=== PATIENT | female | born 1985 | race Caucasian/White ===

== ENCOUNTER → 2017-08-11 10:41 | Outpatient (CLI) | payer OTHER, SELFPAY | PROVIDERS: Family Provider Family Medicine; PCP Family Medicine; Visit Provider Obstetrics & Gynecology | DX: Z34.91 Encounter for supervision of normal pregnancy, unspecified, first trimester (principal) ==

== ENCOUNTER → 2017-08-14 10:01 | Outpatient (CLI) | payer OTHER, MEDICAID, SELFPAY ==
[2017-08-29 16:40] LABS: HCG Quantitative /Beta subunit 4294.6 mIU/mL
== END ==
PROVIDERS: PCP Family Medicine; Visit Provider Obstetrics & Gynecology
DX: N91.2 Amenorrhea, unspecified (principal)
CPT/HCPCS: 36415; 84702

== ENCOUNTER → 2017-08-25 14:26 | Outpatient (CLI) | payer OTHER, MEDICAID, SELFPAY ==
[2017-08-25 14:56] LABS: Sodium 137 mmol/L (137-145)
[2017-08-29 16:46] LABS: HCG Quantitative /Beta subunit 9922.8 mIU/mL
== END ==
PROVIDERS: Family Provider Family Medicine; PCP Family Medicine; Visit Provider Obstetrics & Gynecology
DX: N91.2 Amenorrhea, unspecified (principal); E23.2 Diabetes insipidus; O20.9 Hemorrhage in early pregnancy, unspecified
CPT/HCPCS: 36415; 84295; 84702

== ENCOUNTER → 2017-08-28 10:55 | Outpatient (CLI) | payer OTHER, MEDICAID, SELFPAY ==
[2017-08-29 16:47] LABS: HCG Quantitative /Beta subunit 9083.8 mIU/mL
== END ==
PROVIDERS: PCP Family Medicine; Visit Provider Obstetrics & Gynecology
DX: O20.9 Hemorrhage in early pregnancy, unspecified (principal); N91.2 Amenorrhea, unspecified
CPT/HCPCS: 36415; 84702

== ENCOUNTER → 2017-09-11 11:06 | Outpatient (CLI) | payer OTHER, MEDICAID, SELFPAY ==
[2017-09-11 11:52] LABS: BUN Creatinine Ratio 21.4 (6-22); Blood Urea Nitrogen 15 mg/dL (7-17); Calcium 9.1 mg/dL (8.4-10.2); Carbon Dioxide 26 mmol/L (22-32); Chloride 101 mmol/L (98-107); Estimated Glomerular Filt Rate > 60.0 mL/min (>60); Glucose 105 mg/dL (70-100); HEMOLYSIS < 15 (0-50); Potassium 4.7 mmol/L (3.4-5.1); Sodium 138 mmol/L (137-145)
== END ==
PROVIDERS: Family Provider Family Medicine; PCP Family Medicine; Visit Provider Family Medicine
DX: E87.1 Hypo-osmolality and hyponatremia (principal)
CPT/HCPCS: 36415; 80048

== ENCOUNTER → 2017-12-07 11:24 | Outpatient (CLI) | payer OTHER, SELFPAY ==
[2017-12-07 12:47] LABS: Blood Urea Nitrogen 12 mg/dL (7-17); Carbon Dioxide 29 mmol/L (22-32); Chloride 103 mmol/L (98-107); Estimated Glomerular Filt Rate > 60.0 mL/min (>60); Glucose 90 mg/dL (70-100); HEMOLYSIS < 15 (0-50); Potassium 4.5 mmol/L (3.4-5.1); Sodium 141 mmol/L (137-145)
== END ==
PROVIDERS: Family Provider Family Medicine; PCP Family Medicine; Visit Provider Family Medicine
DX: E23.2 Diabetes insipidus (principal)
CPT/HCPCS: 36415; 80048

== ENCOUNTER → 2017-12-18 09:17 | Outpatient (CLI) | payer OTHER, SELFPAY ==
--- NOTE | 2017-12-18 09:18 | DI.US.S_ITS ---
PROCEDURE: US PELVIC COMPLETE INDICATIONS: Right pelvic pain TECHNIQUE: Real-time scanning was performed of the pelvic organs, with image documentation. Additional endovaginal scanning was necessary due to incomplete visualization of the adnexal and endometrial structures by transabdominal scanning. COMPARISON: None. FINDINGS: Transabdominal scanning: Limited scanning through the kidneys shows no hydronephrosis. No pathologic free abdominal or pelvic fluid. Endovaginal scanning: Uterus: Uterus is normal in size at 9.1 x 4.4 x 5.7 cm. The endometrium measures 7.0 mm in combined thickness. Ovaries: Ovaries normal bilaterally measuring 2.1 x 2.6 x 2.1 cm on the right and 2.1 x 2.3 x 1.6 cm on the left. No adnexal masses. The appendix is not visualized and cannot be evaluated IMPRESSION: 1. No source for right pelvic pain identified sonographically. Dictated by: Santos ADAM Interpreted: Jason Carroll MD on 12/18/2017 at 10:39 Approved by: Jason Carroll M.D. on 12/18/2017 at 21:48
== END ==
PROVIDERS: Family Provider Family Medicine; PCP Family Medicine; Visit Provider Family Medicine
DX: R10.2 Pelvic and perineal pain (principal)
CPT/HCPCS: 76830; 76856

== ENCOUNTER → 2018-03-30 14:24 | Outpatient (CLI) | payer OTHER, SELFPAY ==
[2018-03-30 15:41] LABS: BUN Creatinine Ratio 12.9 (6-22); Blood Urea Nitrogen 9 mg/dL (7-17); Calcium 9.6 mg/dL (8.4-10.2); Carbon Dioxide 24 mmol/L (22-32); Chloride 98 mmol/L (98-107); Estimated Glomerular Filt Rate > 60.0 mL/min (>60); Glucose 90 mg/dL (70-100); HEMOLYSIS < 15 (0-50); Potassium 5.2 mmol/L (3.4-5.1); Sodium 134 mmol/L (137-145)
== END ==
PROVIDERS: PCP Family Medicine; Visit Provider Family Medicine
DX: E23.2 Diabetes insipidus (principal)
CPT/HCPCS: 36415; 80048

== ENCOUNTER → 2018-04-09 10:49 | Outpatient (CLI) | payer OTHER, SELFPAY ==
[2018-04-09 12:21] LABS: BUN Creatinine Ratio 18.3 (6-22); Blood Urea Nitrogen 11 mg/dL (7-17); Calcium 9.3 mg/dL (8.4-10.2); Carbon Dioxide 25 mmol/L (22-32); Chloride 102 mmol/L (98-107); Estimated Glomerular Filt Rate > 60.0 mL/min (>60); Glucose 92 mg/dL (70-100); HEMOLYSIS < 15 (0-50); Potassium 4.2 mmol/L (3.4-5.1); Sodium 137 mmol/L (137-145)
== END ==
PROVIDERS: Family Provider Family Medicine; PCP Family Medicine; Visit Provider Family Medicine
DX: E87.1 Hypo-osmolality and hyponatremia (principal); E87.5 Hyperkalemia
CPT/HCPCS: 36415; 80048

== ENCOUNTER → 2018-05-02 17:04 | Outpatient (CLI) | payer OTHER, SELFPAY ==
[2018-05-02 17:37] LABS: Add Manual Diff / Slide Review NO; Basophils Absolute Auto 0 /uL (0-100); Basophils Percent Auto 0.5 % (0-2); Eosinophils Absolute Auto 0 /uL (0-450); Eosinophils Percent Auto 0.3 % (2-4); Hematocrit 37.7 % (36-46); Hemoglobin 12.7 g/dL (12.0-16.0); Lymphocytes Absolute Auto 1600 /uL (1100-4500); Lymphocytes Percent Auto 17.9 % (25-40); Mean Corpuscular HGB Conc 33.7 % (30-36); Mean Corpuscular Hemoglobin 28.7 PG (26-34); Mean Corpuscular Volume 85.3 fL (80-100); Monocytes Absolute Auto 600 /uL (0-900); Monocytes Percent Auto 6.7 % (3-14); Neutrophils Absolute Auto 6500 /uL (1500-7000); Neutrophils Percent Auto 74.6 % (50-75); Platelet Count 376 X10^3/uL (150-400); Red Blood Cell Count 4.42 X10^6/uL (4.0-5.2); Red Cell Distribution Width 12.3 % (11.6-14.8); White Blood Cell Count 8.7 X10^3/uL (4.5-11.0)
[2018-05-02 18:07] LABS: Alanine Aminotransferase 29 IU/L (9-52); Albumin 4.1 g/dL (3.5-5.0); Albumin Globulin Ratio 1.7 (1.0-2.8); Alkaline Phosphatase 47 U/L (38-126); Aspartate Aminotransferase 16 IU/L (14-36); BUN Creatinine Ratio 14.3 (6-22); Bilirubin Total 0.2 mg/dL (0.2-1.3); Blood Urea Nitrogen 10 mg/dL (7-17); Carbon Dioxide 27 mmol/L (22-32); Chloride 99 mmol/L (98-107); Estimated Glomerular Filt Rate > 60.0 mL/min (>60); Globulin 2.4 g/dL (1.7-4.1); Glucose 99 mg/dL (70-100); HEMOLYSIS < 15 (0-50); Lipase 87 U/L (23-300); Potassium 4.4 mmol/L (3.4-5.1); Sodium 136 mmol/L (137-145); Total Protein 6.5 g/dL (6.3-8.2)
== END ==
PROVIDERS: Family Provider Family Medicine; PCP Family Medicine; Visit Provider Family Medicine
DX: R10.11 Right upper quadrant pain (principal)
CPT/HCPCS: 36415; 80053; 83690; 85025

== ENCOUNTER 2018-05-17 19:08 | Emergency (ER) | payer OTHER, SELFPAY ==
[2018-05-17 19:10] VITALS: BP 146/96; PULSE 95; RESP 18; TEMP 36.1; O2SAT 96
--- NOTE | 2018-05-17 19:28 | DI.RAD.S_ITS ---
PROCEDURE: XR CHEST 1V INDICATIONS: chest pain TECHNIQUE: One view of the chest was acquired. COMPARISON: None. FINDINGS: Surgical changes and devices: None. Lungs and pleura: Lungs are clear. No pleural effusions or pneumothorax. Mediastinum: Mediastinal contours appear normal. Heart size is normal. Bones and chest wall: No suspicious bony lesions. Overlying soft tissues appear unremarkable. IMPRESSION: Normal for age, source of current pain symptoms is not seen. Dictated by: Anupam Daniels M.D. on 05/17/2018 at 20:00 Approved by: Anupam Daniels M.D. on 05/17/2018 at 20:00
--- NOTE | 2018-05-17 19:42 | ED.CHESTPAIN ---
HPI - Chest Pain General Chief Complaint: Chest Pain Stated Complaint: states sodium issues and heart issues Time Seen by Provider: 05/17/18 19:16 Source: patient Mode of arrival: ambulatory Limitations: no limitations History of Present Illness HPI narrative: patient is a 33-year-old female with diabetes insipidus presenting with left-sided chest pain. She says it is worse when she moves her left arm and left set up and takes a deep breath. She denies any shortness of breath no heart palpitations. She says that she does have some issues with her sodium, she does not really know what it is. He is having increased urination some frequent formed stool bowel movements. no abdominal pain no nausea vomiting no head MD complaint: chest pain Related Data Previous Rx's Medication Instructions Recorded lorazepam 0 mg PO Q6HP PRN #15 tab 05/04/16 hydroxyzine HCl 1 tab PO Q6HP PRN #20 tab 10/01/16 albuterol sulfate [Ventolin HFA] 2 puff INH Q4H #1 ea 07/07/17 doxycycline monohydrate 100 mg 100 mg PO BID #28 cap 10/05/17 capsule desmopressin 10 mcg/spray (0.1 mL) 10 mcg NASAL .COMPLEX #45 ml 04/12/18 nasal spray (non-refrigerated) Allergies Allergy/AdvReac Type Severity Reaction Status Date / Time Sulfa (Sulfonamide Allergy Mild HIVES Unverified 05/02/18 16:43 Antibiotics) [SULFA (SULFONAMIDE ANTIBIOTICS)] morphine [MORPHINE] Allergy Unknown Unverified 05/02/18 16:43 Review of Systems Review of Systems GENERAL: Denies chills, fatigue, malaise, fever, sweats, travel HEENT: Denies sinus pain, ear pain, sore throat, difficulty swallowing, neck pain RESPIRATORY: Denies dyspnea, cough, wheezing, hemoptysis, sputum. CARDIOVASCULAR: the HPI GASTROINTESTINAL: Denies nausea, vomiting, abdominal pain, diarrhea, constipation, melena. : Denies dysuria, frequency, incontinence, hematuria, urinary retention, flank pain. MUSCULOSKELETAL: Denies weakness, joint pain, or bony pain SKIN: No rash, no erythema, no pruritus NEUROLOGIC: Denies weakness, dizziness, headache, numbness, change in speech, confusion PSYCHIATRIC: No concerning psychosocial issues. 12 point review of systems is negative except for those stated above and HPI PFSH Medical History Diabetes insipidus (Chronic) 2 (Resolved) Normal Papanicolaou smear (Resolved) Pituitary adenoma (Resolved) Surgical History Pituitary adenoma (Resolved) Family History Brother Gluten intolerance Mother Bipolar 1 disorder Social History Smoking Status: Never smoker Family History Brother Gluten intolerance Mother Bipolar 1 disorder Social History Smoking Status: Never smoker Exam Initial Vital Signs Initial Vital Signs: Vital Signs Temperature 97 F L 05/17/18 19:10 Pulse Rate 95 H 05/17/18 19:10 Respiratory Rate 18 05/17/18 19:10 Blood Pressure 146/96 H 05/17/18 19:10 Pulse Oximetry 96 05/17/18 19:10 GENERAL: overweight female awake alert acute distress HEENT: Head atraumatic,EOMI, pupils reactive, face symmetric, CARDIOVASCULAR: Regular rate and rhythm without murmurs, rubs or gallops. pain is not reproducible with palpation RESPIRATORY: Breath sounds equal bilaterally, no wheezes rales or rhonchi. ABDOMEN: Soft, nontender. Normoactive bowel sounds all 4 quadrants. No guarding or rebound. EXTREMITIES: Normal range of motion, no clubbing or edema. Neurovascularly intact NEUROLOGICAL: Alert and oriented x4.Normal gait and speech. Cranial nerves II through XII grossly intact. SKIN: Warm, dry, no laceration, no petechiae, no rashes or lesions. Scores HEART Score Heart Score history: Slightly Suspicious Heart Score EKG: Normal Heart Score Age: < 45 years old Heart Score risk factors: No known risk factors Heart Score troponin: < or = to normal limit Heart Score Total: 0 PERC Score Age greater than or equal to 50 years: No Heart rate greater than or equal to 100 bpm: No Room Air O2 Sat less than 95%: No Unilateral leg swelling: No Recent trauma or surgery: No Hemoptysis: No Prior PE or DVT: No Hormone Use: No Total PERC Score: 0 Course Orders Ordered: ED Orders 05/17/18 19:28 XR chest 1V Stat 05/17/18 19:55 Complete Blood Count AUTO DIFF Stat 05/17/18 20:19 Comprehensive Metabolic Panel Stat Lipase Stat Troponin & CK Cardiac Panel Stat Vital Signs - 8 hr 05/17/18 19:10 05/17/18 21:07 Temperature 97 F L Pulse Rate 95 H 84 Respiratory Rate 18 19 Blood Pressure 146/96 H 123/67 Pulse Oximetry 96 100 MDM - Chest Pain Lab Data Attestation: I reviewed the patient's lab results. Result diagrams: 05/17/18 19:55 05/17/18 20:19 Lab Results 05/17/18 05/17/18 Range/Units 19:55 20:19 WBC 8.1 (4.5-11.0) X10^3/uL RBC 4.73 (4.0-5.2) X10^6/uL Hgb 13.7 (12.0-16.0) g/dL Hct 40.1 (36-46) % MCV 84.7 (80-100) fL MCH 29.0 (26-34) PG MCHC 34.2 (30-36) % RDW 12.8 (11.6-14.8) % Plt Count 372 (150-400) X10^3/uL Neut % (Auto) 69.3 (50-75) % Lymph % (Auto) 23.1 L (25-40) % [place] % (Auto) 6.4 (3-14) % Eos % (Auto) 0.5 L (2-4) % Baso % (Auto) 0.7 (0-2) % Neut # (Auto) 5600 (0937-1950) /uL Lymph # (Auto) 1900 (5501-5625) /uL [place] # (Auto) 500 (0-900) /uL Eos # (Auto) 0 (0-450) /uL Baso # (Auto) 100 (0-100) /uL Sodium 137 (137-145) mmol/L Potassium 3.7 (3.4-5.1) mmol/L Chloride 105 (98-107) mmol/L Carbon Dioxide 23 (22-32) mmol/L BUN 11 (7-17) mg/dL Creatinine 0.80 (0.52-1.04) mg/dL Estimated GFR > 60.0 (>60) mL/min BUN/Creatinine Ratio 13.8 (6-22) Glucose 105 H (70-100) mg/dL Calcium 9.3 (8.4-10.2) mg/dL Total Bilirubin 0.2 (0.2-1.3) mg/dL AST 18 (14-36) IU/L ALT 30 (9-52) IU/L Alkaline Phosphatase 56 (38-126) U/L Total Creatine Kinase 53 (30-135) U/L CK-MB (CK-2) TNP CK-MB (CK-2) Rel Index TNP Troponin I < 0.012 (0.01-0.034) ng/mL Total Protein 7.1 (6.3-8.2) g/dL Albumin 4.3 (3.5-5.0) g/dL Globulin 2.8 (1.7-4.1) g/dL Albumin/Globulin Ratio 1.5 (1.0-2.8) Lipase 88 (23-300) U/L Urine Dip Bedside Urine Glucose Negative Bedside Urine Bilirubin - Negative Bedside Urine Ketone - Negative Urine Specific [place] 1.020 Bedside Urine Occult Blood - Negative Bedside Urine pH 6.0 Bedside Urine Protein - Negative Bedside Urine Urobilinogen - Negative Bedside Urine Nitrite - Negative Bedside Urine Leukocytes - Negative Esterase Imaging Data Chest x-ray: Radiologist's impression: PROCEDURE: XR CHEST 1V INDICATIONS: chest pain TECHNIQUE: One view of the chest was acquired. COMPARISON: None. FINDINGS: Surgical changes and devices: None. Lungs and pleura: Lungs are clear. No pleural effusions or pneumothorax. Mediastinum: Mediastinal contours appear normal. Heart size is normal. Bones and chest wall: No suspicious bony lesions. Overlying soft tissues appear unremarkable. IMPRESSION: Normal for age, source of current pain symptoms is not seen. Dictated by: Anupam Daniels M.D. on 05/17/2018 at 20:00 ECG Data Attestation: I personally reviewed and interpreted this ECG as follows: Prior ECG tracings: available for review Interpretation: Normal sinus rhythm rate [address] changes T-wave inversion noted in lead 3 here interval 153 MDM Narrative Medical decision making narrative: Patient's pain is reproducible with movement and breathing consistent with musculoskeletal pain. Blood work EKG are reassuring. Her sodium is also within normal limits which is her major concern. At this time no indication for any further testing. Multiple etiologies for patient's symptoms considered including: Musculoskeletal, costochondritis, acute coronary syndrome, pulmonary embolism, Discharge Plan Departure Patient Disposition: Home Clinical Impression: Atypical chest pain Discharge Date/Time: 05/17/18 21:08 Interventions: ED Discharge Assessment Last Done: 05/17/18 21:07 Instructions: DI for Atypical Chest Pain Activity Restrictions/Additional Instructions: *YOU HAVE BEEN DIAGNOSED WITH atypical chest pain *WHAT TO DO: sodium today *CONTINUE TO TAKE MEDICATIONS DIRECTED *FOLLOW UP WITH YOUR PRIMARY CARE PROVIDER IN 2-3 DAYS *RETURN TO ER IF YOU SHOULD HAVE ANY NEW, WORSENING OR CONCERNING SYMPTOMS Prescriptions: No Action lorazepam 0.5 MG tablet PO Q6HP PRNQty: 15 RF: 0 hydroxyzine HCl 25 MG tablet 1 tab PO Q6HP PRNQty: 20 RF: 0 albuterol sulfate [Ventolin HFA] 90 MCG/PUFF HFA aerosol inhaler 2 puff INH Q4H Qty: 1 RF: 0 doxycycline monohydrate 100 mg capsule 100 mg PO BID Qty: 28 RF: 0 desmopressin [DDAVP] 10 mcg/spray (0.1 mL) spray with pump 10 mcg NASAL .COMPLEX Qty: 45 RF: 3 Referrals: Kelle Garcia DO [Primary Care Provider] -
[2018-05-17 20:04] LABS: Add Manual Diff / Slide Review NO; Basophils Absolute Auto 100 /uL (0-100); Basophils Percent Auto 0.7 % (0-2); Eosinophils Absolute Auto 0 /uL (0-450); Eosinophils Percent Auto 0.5 % (2-4); Hematocrit 40.1 % (36-46); Hemoglobin 13.7 g/dL (12.0-16.0); Lymphocytes Absolute Auto 1900 /uL (1100-4500); Lymphocytes Percent Auto 23.1 % (25-40); Mean Corpuscular HGB Conc 34.2 % (30-36); Mean Corpuscular Volume 84.7 fL (80-100); Monocytes Absolute Auto 500 /uL (0-900); Monocytes Percent Auto 6.4 % (3-14); Neutrophils Absolute Auto 5600 /uL (1500-7000); Neutrophils Percent Auto 69.3 % (50-75); Platelet Count 372 X10^3/uL (150-400); Red Blood Cell Count 4.73 X10^6/uL (4.0-5.2); Red Cell Distribution Width 12.8 % (11.6-14.8); White Blood Cell Count 8.1 X10^3/uL (4.5-11.0)
[2018-05-17 20:36] LABS: Alanine Aminotransferase 30 IU/L (9-52); Albumin 4.3 g/dL (3.5-5.0); Albumin Globulin Ratio 1.5 (1.0-2.8); Alkaline Phosphatase 56 U/L (38-126); Aspartate Aminotransferase 18 IU/L (14-36); BUN Creatinine Ratio 13.8 (6-22); Bilirubin Total 0.2 mg/dL (0.2-1.3); Blood Urea Nitrogen 11 mg/dL (7-17); Calcium 9.3 mg/dL (8.4-10.2); Carbon Dioxide 23 mmol/L (22-32); Chloride 105 mmol/L (98-107); Creatine Kinase 53 U/L (30-135); Estimated Glomerular Filt Rate > 60.0 mL/min (>60); Globulin 2.8 g/dL (1.7-4.1); Glucose 105 mg/dL (70-100); HEMOLYSIS < 15 (0-50); Lipase 88 U/L (23-300); Potassium 3.7 mmol/L (3.4-5.1); Sodium 137 mmol/L (137-145); Total Protein 7.1 g/dL (6.3-8.2)
[2018-05-17 20:52] LABS: Troponin I < 0.012 ng/mL (0.01-0.034)
[2018-05-17 21:07] VITALS: BP 123/67; PULSE 84; RESP 19; O2SAT 100
== END 2018-05-17 21:08 | disposition home or self-care (01) ==
PROVIDERS: Emergency Provider Emergency Medicine; Family Provider Family Medicine; PCP Family Medicine
DX: R07.89 Other chest pain (principal)
CPT/HCPCS: 36415; 36591; 71045; 80053; 81003; 82550; 83690; 84484; 85025; 93005; 99283; 99285

== ENCOUNTER → 2018-06-08 13:39 | Outpatient (CLI) | payer OTHER, SELFPAY ==
--- NOTE | 2018-06-08 13:40 | DI.US.S_ITS ---
PROCEDURE: US ABDOMEN COMPLETE INDICATIONS: RIGHT UPPER QUADRANT PAIN TECHNIQUE: Real-time scanning was performed of the abdominal and retroperitoneal organs, with image documentation. COMPARISON: None. FINDINGS: Liver: Liver demonstrates increased coarse echogenicity diffusely. There is an area of hypoechoic appearance adjacent to guru hepatis, presumably focal fatty sparing measuring 3.6 x 1.8 x 3.0 cm although technically nonspecific. Gallbladder: Contracted although otherwise unremarkable. No wall thickening or sonographic Johnston sign. Biliary ducts: Intrahepatic bile ducts are non-dilated. Extrahepatic bile duct caliber measures 2 mm. Normal is 6-7 mm or less in diameter, or 10 mm or less post-cholecystectomy. Pancreas: Visualized portions of the pancreas are sonographically normal. Spleen: Spleen is normal in size and homogeneous in echotexture. Kidneys: Kidneys are normal in size and echotexture. Right kidney measures 12.0 cm long; left kidney measures 11.3 cm long. No hydronephrosis or nephrolithiasis. No solid masses. Aorta: Visualized aorta is normal in caliber at less than 3 cm. Iliacs: Proximal common iliac arteries are normal in caliber at less than 2.5 cm. IVC: Intrahepatic inferior vena cava is patent. Miscellaneous: No free abdominal fluid. IMPRESSION: Focal hypoechoic hepatic appearance adjacent to guru hepatis, probably focal fatty sparing in a background of diffuse hepatocellular disease/fatty infiltration. However given the absence of comparison studies and somewhat masslike appearance, recommend ultrasound followup in 6 months to document continued long-term stability. Elsewhere, no acute abnormality. Dictated by: Sharif Larson M.D. on 06/08/2018 at 14:32 Approved by: Sharif Larson M.D. on 06/08/2018 at 14:36
== END ==
PROVIDERS: Family Provider Family Medicine; PCP Family Medicine; Visit Provider Family Medicine
DX: R10.11 Right upper quadrant pain (principal)
CPT/HCPCS: 76700

== ENCOUNTER → 2018-07-04 14:16 | Outpatient (CLI) | payer OTHER, SELFPAY ==
[2018-07-04 15:38] LABS: BUN Creatinine Ratio 21.7 (6-22); Blood Urea Nitrogen 13 mg/dL (7-17); Calcium 9.6 mg/dL (8.4-10.2); Carbon Dioxide 24 mmol/L (22-32); Chloride 102 mmol/L (98-107); Estimated Glomerular Filt Rate > 60.0 mL/min (>60); Glucose 97 mg/dL (70-100); HEMOLYSIS < 15 (0-50); Potassium 4.6 mmol/L (3.4-5.1); Sodium 136 mmol/L (137-145)
== END ==
PROVIDERS: Family Provider Family Medicine; PCP Family Medicine; Visit Provider Family Medicine
DX: E87.1 Hypo-osmolality and hyponatremia (principal)
CPT/HCPCS: 36415; 80048

== ENCOUNTER → 2018-09-10 13:47 | Outpatient (CLI) | payer OTHER, SELFPAY ==
[2018-09-10 16:23] LABS: BUN Creatinine Ratio 16.3 (6-22); Blood Urea Nitrogen 13 mg/dL (7-17); Calcium 9.4 mg/dL (8.4-10.2); Carbon Dioxide 28 mmol/L (22-32); Chloride 101 mmol/L (98-107); Estimated Glomerular Filt Rate > 60.0 mL/min (>60); Glucose 112 mg/dL (70-100); HEMOLYSIS < 15 (0-50); Potassium 3.9 mmol/L (3.4-5.1); Sodium 138 mmol/L (137-145)
== END ==
PROVIDERS: PCP Family Medicine; Visit Provider Family Medicine
DX: E87.1 Hypo-osmolality and hyponatremia (principal)
CPT/HCPCS: 36415; 80048

== ENCOUNTER → 2018-09-12 16:32 | Outpatient (CLI) | payer OTHER, SELFPAY ==
[2018-09-12 16:50] LABS: Bacteria Urine None Seen; RBC Urine None Seen (0-5/HPF)
[2018-09-12 17:59] LABS: Appearance Urine UA CLEAR; Bilirubin Urine UA NEGATIVE (NEGATIVE); Color Urine UA YELLOW; Glucose Urine UA NEGATIVE (Negative); Ketones Urine UA NEGATIVE (NEGATIVE); Leukocyte Esterase Urine UA NEGATIVE (NEGATIVE); Nitrite Urine UA NEGATIVE (Negative); Occult Blood Urine UA NEGATIVE (Negative); Protein Urine UA NEGATIVE (Negative); Specific Gravity Urine UA 1.025 (1.000-1.035); Urobilinogen Urine UA 0.2 E.U./dL (0.2)
[2018-09-12 18:20] LABS: Squamous Epithelial Cell Urine 1-5 /HPF (0-5/HPF); WBC Urine 0-1/HPF (0-5/HPF)
[2018-09-12 18:21] LABS: Amorphous Sediment Urine 1+; Culture Indicated Urine Cult Not Indicated
== END ==
PROVIDERS: PCP Family Medicine; Visit Provider Family Medicine
DX: R30.0 Dysuria (principal)
CPT/HCPCS: 81001

== ENCOUNTER → 2018-10-03 15:28 | Outpatient (CLI) | payer OTHER, SELFPAY ==
[2018-10-03 16:29] LABS: BUN Creatinine Ratio 23.3 (6-22); Blood Urea Nitrogen 14 mg/dL (7-17); Calcium 9.3 mg/dL (8.4-10.2); Carbon Dioxide 24 mmol/L (22-32); Chloride 105 mmol/L (98-107); Estimated Glomerular Filt Rate > 60.0 mL/min (>60); Glucose 103 mg/dL (70-100); HEMOLYSIS < 15 (0-50); Potassium 4.4 mmol/L (3.4-5.1); Sodium 138 mmol/L (137-145)
== END ==
PROVIDERS: PCP Family Medicine; Visit Provider Family Medicine
DX: E23.2 Diabetes insipidus (principal)
CPT/HCPCS: 80048

== ENCOUNTER → 2018-11-14 14:12 | Outpatient (CLI) | payer OTHER, SELFPAY ==
[2018-11-14 14:52] LABS: Blood Urea Nitrogen 10 mg/dL (7-17); Calcium 9.2 mg/dL (8.4-10.2); Carbon Dioxide 26 mmol/L (22-32); Chloride 96 mmol/L (98-107); Estimated Glomerular Filt Rate > 60.0 mL/min (>60); Glucose 107 mg/dL (70-100); HEMOLYSIS < 15 (0-50); Potassium 4.3 mmol/L (3.4-5.1); Sodium 132 mmol/L (137-145)
== END ==
PROVIDERS: PCP Family Medicine; Visit Provider Hospitalist
DX: E23.2 Diabetes insipidus (principal)
CPT/HCPCS: 36415; 80048

== ENCOUNTER → 2018-11-22 13:57 | Outpatient (CLI) | payer OTHER, SELFPAY ==
[2018-11-22 15:05] LABS: BUN Creatinine Ratio 18.8 (6-22); Blood Urea Nitrogen 15 mg/dL (7-17); Calcium 9.6 mg/dL (8.4-10.2); Carbon Dioxide 26 mmol/L (22-32); Chloride 105 mmol/L (98-107); Estimated Glomerular Filt Rate > 60.0 mL/min (>60); Glucose 70 mg/dL (70-100); HEMOLYSIS < 15 (0-50); Potassium 4.2 mmol/L (3.4-5.1); Sodium 141 mmol/L (137-145)
== END ==
PROVIDERS: PCP Family Medicine; Visit Provider Hospitalist
DX: E87.1 Hypo-osmolality and hyponatremia (principal)
CPT/HCPCS: 36415; 80048

== ENCOUNTER → 2019-01-23 15:07 | Outpatient (CLI) | payer OTHER, SELFPAY | PROVIDERS: PCP Family Medicine; Visit Provider Nurse Practitioner | DX: Z20.818 Contact with and (suspected) exposure to other bacterial communicable diseases (principal) | CPT/HCPCS: 87070 ==

== ENCOUNTER → 2019-01-30 12:38 | Outpatient (CLI) | payer OTHER, SELFPAY ==
[2019-01-30 13:47] LABS: Blood Urea Nitrogen 12 mg/dL (7-17); Carbon Dioxide 28 mmol/L (22-32); Chloride 102 mmol/L (98-107); Estimated Glomerular Filt Rate > 60.0 mL/min (>60); Glucose 94 mg/dL (70-100); HEMOLYSIS < 15 (0-50); Potassium 5.1 mmol/L (3.4-5.1); Sodium 140 mmol/L (137-145)
== END ==
PROVIDERS: PCP Family Medicine; Visit Provider Family Medicine
DX: E87.1 Hypo-osmolality and hyponatremia (principal)
CPT/HCPCS: 36415; 80048

== ENCOUNTER → 2019-03-15 13:21 | Outpatient (CLI) | payer OTHER, SELFPAY ==
[2019-03-15 14:55] LABS: BUN Creatinine Ratio 16.7 (6-22); Blood Urea Nitrogen 10 mg/dL (7-17); Carbon Dioxide 23 mmol/L (22-32); Chloride 102 mmol/L (98-107); Estimated Glomerular Filt Rate > 60.0 mL/min (>60); Glucose 87 mg/dL (70-100); Potassium 3.9 mmol/L (3.4-5.1); Sodium 136 mmol/L (137-145)
[2019-03-15 14:56] LABS: HEMOLYSIS 52 (0-50)
[2019-03-15 15:33] LABS: HCG Quantitative /Beta subunit 83438 mIU/mL
== END ==
PROVIDERS: PCP Family Medicine; Visit Provider Obstetrics & Gynecology
DX: N91.2 Amenorrhea, unspecified (principal); E87.1 Hypo-osmolality and hyponatremia
CPT/HCPCS: 36415; 80048; 84702

== ENCOUNTER → 2019-03-18 10:40 | Outpatient (CLI) | payer OTHER, SELFPAY ==
[2019-03-18 12:03] LABS: HCG Quantitative /Beta subunit 94094 mIU/mL
== END ==
PROVIDERS: PCP Family Medicine; Visit Provider Obstetrics & Gynecology
DX: N91.2 Amenorrhea, unspecified (principal)
CPT/HCPCS: 36415; 84702

== ENCOUNTER → 2019-03-27 14:06 | Outpatient (CLI) | payer OTHER, SELFPAY ==
--- NOTE | 2019-03-27 14:10 | DI.US.S_ITS ---
PROCEDURE: US ABDOMEN COMPLETE INDICATIONS: RIGHT UPPER QUADRANT PAIN TECHNIQUE: Real-time scanning was performed of the abdominal and retroperitoneal organs, with image documentation. COMPARISON: [facility], , US ABDOMEN COMPLETE, 06/08/2018, 13:47. FINDINGS: Liver: Liver is diffusely increased in echogenicity. No focal hepatic abnormalities identified. Normal hepatic size. Focal fatty sparing seen in prior examination not definitively identified on today's exam. Gallbladder: No gallstones identified. Normal gallbladder wall. No pericholecystic fluid. Negative sonographic Johnston sign. Biliary ducts: Intrahepatic bile ducts are non-dilated. Extrahepatic bile duct caliber measures 4.0 mm. Normal is 6-7 mm or less in diameter, or 10 mm or less post-cholecystectomy. Pancreas: Visualized portions of the pancreas are sonographically normal. Spleen: Spleen is normal in size and homogeneous in echotexture. Kidneys: Kidneys are normal in size and echotexture. Right kidney measures 12.7 cm long; left kidney measures 11.3 cm long. No hydronephrosis or nephrolithiasis. No solid masses. Aorta: Visualized aorta is normal in caliber at less than 3 cm. Iliacs: Proximal common iliac arteries are normal in caliber at less than 2.5 cm. IVC: Intrahepatic inferior vena cava is patent. Miscellaneous: No free abdominal fluid. IMPRESSION: 1. Increased hepatic echogenicity noted possibly related to hepatic steatosis but other sources of hepatocellular disease including hepatic cirrhosis cannot be excluded. Recommend clinical correlation. 2. Focal fatty sparing seen in prior examination not seen on today's study. 3. No source for upper quadrant pain identified. Dictated by: Santos SAMS Interpreted: Anupam Daniels MD on 03/27/2019 at 15:28 Approved by: Anupam Daniels M.D. on 03/27/2019 at 20:35
[2019-03-27 14:35] LABS: Add Manual Diff / Slide Review NO; Basophils Absolute Auto 100 /uL (0-100); Basophils Percent Auto 1.1 % (0-2); Eosinophils Absolute Auto 0 /uL (0-450); Eosinophils Percent Auto 0.3 % (2-4); Hematocrit 38.5 % (36-46); Hemoglobin 13.1 g/dL (12.0-16.0); Lymphocytes Absolute Auto 1500 /uL (1100-4500); Lymphocytes Percent Auto 18.3 % (25-40); Mean Corpuscular HGB Conc 33.9 % (30-36); Mean Corpuscular Hemoglobin 28.7 PG (26-34); Mean Corpuscular Volume 84.8 fL (80-100); Monocytes Absolute Auto 600 /uL (0-900); Neutrophils Absolute Auto 5800 /uL (1500-7000); Neutrophils Percent Auto 73.3 % (50-75); Platelet Count 402 X10^3/uL (150-400); Red Blood Cell Count 4.54 X10^6/uL (4.0-5.2); Red Cell Distribution Width 12.9 % (11.6-14.8); White Blood Cell Count 7.9 X10^3/uL (4.5-11.0)
[2019-03-27 14:58] LABS: Appearance Urine UA CLEAR; Bilirubin Urine UA NEGATIVE (NEGATIVE); Color Urine UA YELLOW; Glucose Urine UA NEGATIVE (Negative); Ketones Urine UA NEGATIVE (NEGATIVE); Leukocyte Esterase Urine UA NEGATIVE (NEGATIVE); Nitrite Urine UA NEGATIVE (Negative); Occult Blood Urine UA NEGATIVE (Negative); Protein Urine UA NEGATIVE (Negative); Urobilinogen Urine UA 0.2 E.U./dL (0.2)
[2019-03-27 15:17] LABS: pH Urine UA 5.5 (4.5-8.0)
[2019-03-27 17:14] LABS: Hepatitis B Surface Antigen NEGATIVE s/c (NEGATIVE)
[2019-03-27 17:31] LABS: HIV 1 & 2 Ab/Ag 4th Gen Combo NEGATIVE (NEGATIVE); Hep C Virus Ab w/Reflex Quant NEGATIVE s/c (NEGATIVE)
[2019-03-30 21:16] LABS: RPR Screen Nonreactive (Nonreactive)
== END ==
PROVIDERS: PCP Family Medicine; Visit Provider Obstetrics & Gynecology
DX: Z34.81 Encounter for supervision of other normal pregnancy, first trimester (principal); R10.11 Right upper quadrant pain
CPT/HCPCS: 36415; 76700; 80055; 81003; 86787; 86803; 86850; 86900; 86901; 87077; 87086; 87147; 87389

== ENCOUNTER → 2019-04-17 15:24 | Outpatient (CLI) | payer OTHER, SELFPAY | PROVIDERS: PCP Family Medicine; Visit Provider Specialist | DX: O09.529 Supervision of elderly multigravida, unspecified trimester (principal); Z34.81 Encounter for supervision of other normal pregnancy, first trimester; Z36.0 Encounter for antenatal screening for chromosomal anomalies; Z3A.12 12 weeks gestation of pregnancy | CPT/HCPCS: 36415; 81420 ==

== ENCOUNTER → 2019-06-19 12:08 | Outpatient (CLI) | payer OTHER, SELFPAY ==
--- NOTE | 2019-06-19 12:09 | DI.US.S_ITS ---
PROCEDURE: US OB >= 14 WEEKS FETUS INDICATIONS: ANATOMY OUTSIDE/PRIOR DATING DATA: Last menstrual period (LMP): Unknown. LMP-based estimated date of delivery (HELEN): Unknown. First dating scan (date and location): 03/28/19 Estimated date of delivery (HELEN) from first dating scan: 11/01/19. TECHNIQUE: Real-time scanning was performed of the fetus, with image documentation and biometric measurements. Endovaginal scanning: Not performed COMPARISON: [facility], , OB >= 14 WEEKS FETUS, 06/17/2019, 14:45. FINDINGS: General: A single living intrauterine gestation is present. Presentation: Breech. Placenta: Placental position is right fundal, without previa. Amniotic fluid index: 10.4 cm, normal range is 5-24 cm. heart rate: 157 beats per minute. Maternal cervical canal: 3.4 cm long. Normal lower limit is 2.5 cm. biometrics: Biparietal diameter: 4.5 cm, 19 weeks 4 days Head circumference: 17.4 cm, 20 weeks zero days Abdominal circumference: 15.8 cm, 20 weeks 6 days Femur length: 3.4 cm, 20 weeks 3 days Estimated gestational age from initial scan: 20 weeks 5 days Composite gestational age from present scan: 20 weeks 2 days Estimated weight and percentile: 365 g, 39th percentile Measurement variability for biometric dating: +/- 7 days from 14 weeks to 15 weeks 6 days gestation, +/- 10 days from 16 weeks to 21 weeks 6 days gestation, +/- 2 weeks from 22 weeks to 27 weeks 6 days gestation, +/- 3 weeks for 28 weeks gestation or later. weight reference: 4500 g or EFW >90/95% is considered macrosomia or large for gestational age. EFW <10% is small for gestational age. EFW 5% or less is considered intra-uterine growth restriction. Anatomic survey: Neuro: Ventricles are non-dilated at less than 10 mm. Cisterna magna is normal at 3-11 mm. Cerebellum is normal in size and morphology. Nuchal skin fold: Normal at less than 6 mm between 14-21 weeks gestational age. Face: Nose and lips, facial profile are not well visualized secondary to lie. Spine: No evidence for spina bifida. Heart: 4-chambered heart is present, with normal ventricular outflow tracts. Diaphragm: Diaphragm is intact. Stomach: Left-sided stomach is present. Kidneys: No hydronephrosis. Normal is less than 5 mm in 2nd trimester, less than 7 mm in 3rd trimester. Cord: 3-vessel cord has orthotopic insertion. Bladder: Normal in size. Extremities: All 4 extremities identified. IMPRESSION: 1. Living second trimester intrauterine . Ultrasound age is 20 weeks 2 days. Clinical age is 20 weeks 5 days. 2. Suboptimal visualization of face, nose and lips, and profile secondary to lie. 3. anatomy study otherwise unremarkable. Normal-appearing placenta. Comment: Consider followup limited ultrasound to evaluate face,, and profile. Dictated by: Sharif Larson M.D. on 06/19/2019 at 16:37 Approved by: Sammy Cantu M.D. on 06/21/2019 at 21:01
== END ==
PROVIDERS: PCP Family Medicine; Referring Provider Specialist; Visit Provider Specialist
DX: Z34.82 Encounter for supervision of other normal pregnancy, second trimester (principal); Z3A.20 20 weeks gestation of pregnancy
CPT/HCPCS: 76811

== ENCOUNTER → 2019-07-18 11:19 | Outpatient (CLI) | payer OTHER, MEDICAID, SELFPAY ==
[2019-07-18 13:14] LABS: Hematocrit 32.9 % (36-46); Hemoglobin 11.3 g/dL (12.0-16.0)
[2019-07-18 13:40] LABS: Alanine Aminotransferase 16 IU/L (<35); Albumin 3.3 g/dL (3.5-5.0); Albumin Globulin Ratio 1.2 (1.0-2.8); Alkaline Phosphatase 52 U/L (38-126); Aspartate Aminotransferase 17 IU/L (14-36); BUN Creatinine Ratio 18.8 (6-22); Bilirubin Total 0.2 mg/dL (0.2-1.3); Blood Urea Nitrogen 9 mg/dL (7-17); Calcium 8.9 mg/dL (8.4-10.2); Carbon Dioxide 23 mmol/L (22-32); Chloride 105 mmol/L (98-107); Estimated Glomerular Filt Rate > 60.0 mL/min (>60); GTT (PREG) 1 Hour PP 50gm Dose 109 mg/dL (76-139); Globulin 2.7 g/dL (1.7-4.1); Glucose 109 mg/dL (70-100); HEMOLYSIS < 15 (0-50); Potassium 4.2 mmol/L (3.4-5.1); Sodium 135 mmol/L (137-145)
== END ==
PROVIDERS: PCP Family Medicine; Referring Provider Specialist; Visit Provider Specialist
DX: Z34.82 Encounter for supervision of other normal pregnancy, second trimester (principal); Z3A.24 24 weeks gestation of pregnancy; E23.2 Diabetes insipidus
CPT/HCPCS: 36415; 80053; 82950; 85014; 85018

== ENCOUNTER → 2019-10-09 12:13 | Outpatient (CLI) | payer OTHER, MEDICAID, SELFPAY ==
[2019-10-09 13:04] LABS: BUN Creatinine Ratio 16.7 (6-22); Blood Urea Nitrogen 9 mg/dL (7-17); Calcium 8.7 mg/dL (8.4-10.2); Carbon Dioxide 23 mmol/L (22-32); Chloride 105 mmol/L (98-107); Estimated Glomerular Filt Rate > 60.0 mL/min (>60); Glucose 83 mg/dL (70-100); HEMOLYSIS < 15 (0-50); Potassium 4.5 mmol/L (3.4-5.1); Sodium 132 mmol/L (137-145)
[2019-10-10 14:04] LABS: Strep Grp B PCR POS for Grp B Strep
== END ==
PROVIDERS: PCP Family Medicine; Referring Provider Specialist; Visit Provider Specialist
DX: Z34.83 Encounter for supervision of other normal pregnancy, third trimester (principal); E23.2 Diabetes insipidus
CPT/HCPCS: 36415; 80048; 87653

== ENCOUNTER → 2019-10-16 15:38 | Outpatient (CLI) | payer OTHER, MEDICAID, SELFPAY ==
[2019-10-16 17:09] LABS: BUN Creatinine Ratio 18.2 (6-22); Blood Urea Nitrogen 10 mg/dL (7-17); Calcium 9.2 mg/dL (8.4-10.2); Carbon Dioxide 22 mmol/L (22-32); Chloride 104 mmol/L (98-107); Estimated Glomerular Filt Rate > 60.0 mL/min (>60); Glucose 84 mg/dL (70-100); HEMOLYSIS < 15 (0-50); Potassium 4.8 mmol/L (3.4-5.1); Sodium 132 mmol/L (137-145)
== END ==
PROVIDERS: PCP Family Medicine; Referring Provider Specialist; Visit Provider Specialist
DX: E23.2 Diabetes insipidus (principal); E87.1 Hypo-osmolality and hyponatremia
CPT/HCPCS: 36415; 80048

== ENCOUNTER → 2019-10-22 09:37 | Outpatient (CLI) | payer OTHER, MEDICAID, SELFPAY ==
[2019-10-23 08:06] LABS: COVID19 Sendout Not Detected (Not Detect)
== END ==
PROVIDERS: PCP Family Medicine; Visit Provider Physician Assistant
DX: Z01.812 Encounter for preprocedural laboratory examination (principal)
CPT/HCPCS: 87635

== ENCOUNTER 2019-10-23 01:54 | Inpatient (IN) | payer OTHER, MEDICAID, SELFPAY ==
[2019-10-23] VITALS (8 sets, daily range): BP systolic 108–134; BP diastolic 64–86; PULSE 68–79; RESP 10–22; TEMP 36.2; O2SAT 96–100
--- NOTE | 2019-10-23 | PATH_ITS ---
[facility] Accession Number: [id number] . 01 Material submitted: . fallopian tube - BILATERAL FALLOPIAN TUBES . 01 Clinical history: . EVALUATION OF LABOR . 02 Diagnosis: Bilateral Fallopian Tubes, Tubal Ligation: Complete cross-sections of segments of fallopian tube x2. MRV 10/25/2019 1023 Local . 02 Electronically signed: . Tabatha Siegel MD, Pathologist NPI- [id number] . 01 Gross description: . Received one formalin-filled container, labeled with the patient's name and labeled bilateral fallopian tubes. Received are two nonfimbriated, cylindrical-shaped portions of tissue. The first measures 1.0 x 0.6 x 0.5 cm; sectioned into three pieces and entirely submitted in cassette A1. The second piece measures 0.9 x 0.5 x 0.5 cm; sectioned into three pieces and entirely submitted in cassette A2. ([id number]) /[facility] 10/24/2019 0235 Local . 02 Pathologist provided ICD-10: Z30.2 . 02 CPT . 795125 Performed at: 01 [facility] [address] [facility], [place], [place] [id number] MD Henri Cho MD Phone: [phone] Performed at: 02 [facility] [address] [place], [place] [id number] MD Tayler Cheng MD Phone: [phone]
[2019-10-23] MEDS: LACTATED RINGERS 1,000 ML 999 ML IV ×2 (02:30→04:18)
[2019-10-23 02:53] LABS: Add Manual Diff / Slide Review NO; Basophils Absolute Auto 0 /uL (0-100); Basophils Percent Auto 0.4 % (0-2); Eosinophils Absolute Auto 100 /uL (0-450); Eosinophils Percent Auto 0.6 % (2-4); Hematocrit 35.5 % (36-46); Hemoglobin 12.1 g/dL (12.0-16.0); Lymphocytes Absolute Auto 1800 /uL (1100-4500); Lymphocytes Percent Auto 18.9 % (25-40); Mean Corpuscular HGB Conc 33.9 % (30-36); Mean Corpuscular Volume 85.5 fL (80-100); Monocytes Absolute Auto 600 /uL (0-900); Monocytes Percent Auto 6.2 % (3-14); Neutrophils Absolute Auto 7000 /uL (1500-7000); Neutrophils Percent Auto 73.9 % (50-75); Platelet Count 287 X10^3/uL (150-400); Red Blood Cell Count 4.16 X10^6/uL (4.0-5.2); Red Cell Distribution Width 13.6 % (11.6-14.8); White Blood Cell Count 9.5 X10^3/uL (4.5-11.0)
[2019-10-23 02:57] LABS: Carbon Dioxide 22 mmol/L (22-32); Chloride 106 mmol/L (98-107); HEMOLYSIS < 15 (0-50); Potassium 4.3 mmol/L (3.4-5.1); Sodium 134 mmol/L (137-145)
--- NOTE | 2019-10-23 03:00 | P.HPOB_ITS ---
OB HPI Date/Time Date of admission: 10/23/19 Date Patient Seen: 10/23/19 Time Patient Seen: 03:02 History of Present Condition Chief complaint: Evaluation of Labor : 4 Para: 1 Estimated Date of Delivery: 10/31/19 Estimated Gestational Age (weeks): 38 Narrative: Tee Price is a 34 year old female scheduled for repeat C- section and tubal ligation who arrived in Labor and delivery with spontaneous rupture membranes in active labor Indications Operative indications ( section): previous uterine surgery History of Present care: good care, initiated at week # (9), number of visits (10) and pounds weight gain (0) Dating criteria: LMP confirmed by 1st trimester US Ultrasounds: normal mid trimester US Obstetrical complications: none Medical complications: none Preadmission Labs Blood type: O (+) positive -: Antibody screen: negative, GBS status: positive, HBsAG: negative, HIV: negative and RPR/VDLR: negative -: Chlamydia screen: not detected and Gonorrhea screen: not detected -: Rubella: immune and Varicella: immune HCAB: negative Cell-free DNA: Normal 1 hr GTT: 109 Prior (ies) History: 10/01/2010 gestational hypertension 37 weeks primary Evaluation Evaluation Laboratory results: Laboratory Tests 10/23/19 02:35 WBC 9.5 RBC 4.16 Hgb 12.1 Hct 35.5 L MCV 85.5 MCH 29.0 MCHC 33.9 RDW 13.6 Plt Count 287 Neut % (Auto) 73.9 Lymph % (Auto) 18.9 L [place] % (Auto) 6.2 Eos % (Auto) 0.6 L Baso % (Auto) 0.4 Neut # (Auto) 7000 Lymph # (Auto) 1800 [place] # (Auto) 600 Eos # (Auto) 100 Baso # (Auto) 0 PFSH Medical History (Updated 10/16/19 @ 07:57 by Chelsey Ruby MD) Diabetes insipidus (Chronic) 2 (Resolved) Normal Papanicolaou smear (Resolved) Pituitary adenoma (Resolved) Surgical History (Updated 03/25/19 @ 10:30 by Bessie Logan RN) Pituitary adenoma (Resolved) Previous section (Acute) [place] teeth extracted (Acute) Family History (Updated 03/25/19 @ 10:29 by Bessie Logan RN) Brother Gluten intolerance Mother Bipolar 1 disorder Fibromyalgia Arthritis Diverticulitis Brother Bipolar affect, depressed Brother Bipolar affect, depressed Father Myocardial infarction Atrial fibrillation Grandmother Diabetes mellitus Seizures Grandfather Parkinsons Grandmother Stroke Grandfather No problems noted. Social History marital status: number of children: 1 household members: spouse and children pets and animals: Yes (X 1 cat and aware) education level: high school occupational status: employed current occupational exposures/hazards: No spring/sabianism: Bahai special spring needs: Yes (No Blood Products) Smoking Status: Never smoker second hand exposure: No alcohol intake: former substance use type: does not use Type(s) of exercise: walking Meds Home Medications and Allergies Home Medications Medication Instructions Recorded Confirmed Type lorazepam 0 mg PO Q6HP PRN #15 tab 05/04/16 10/16/19 Rx prenat.vits,david,ebc-ivby-mygce 1 tab PO DAILY 03/25/19 10/16/19 History omeprazole 40 mg capsule,delayed 40 mg PO DAILY #30 cap 08/30/19 10/16/19 Rx release desmopressin 10 mcg/spray (0.1 mL) 10 mcg NASAL .COMPLEX #45 ml 09/12/19 10/16/19 Rx nasal spray (non-refrigerated) Double Electric breast Pump and #1 each 09/18/19 10/16/19 Rx Supplies Allergies Allergy/AdvReac Type Severity Reaction Status Date / Time Sulfa (Sulfonamide Allergy Mild HIVES Verified 07/15/19 11:39 Antibiotics) [SULFA (SULFONAMIDE ANTIBIOTICS)] morphine [MORPHINE] Allergy Unknown Verified 07/15/19 11:39 Review of Systems Review of Systems Narrative: Patient had spontaneous rupture membranes clear fluid with onset of contractions. No headaches, scotomata, epigastric pain. ROS: Yes All systems reviewed with the patient and are negative except as otherwise documented Exam Vital Signs (past 8 hours): Blood pressure 134/69, temperature 36.2? Narrative Exam Narrative: HEENT exam within normal limits. Lungs are clear to auscultation and percussion. Heart is regular rate rhythm no S3-S4 or murmurs. Abdomen is gravid. is vertex. Extremities without edema and nontender. Objective Labs Result Diagrams: 10/23/19 02:35 10/23/19 02:35 Labs: Laboratory Results - last 24 hr 10/23/19 02:35 WBC 9.5 RBC 4.16 Hgb 12.1 Hct 35.5 L MCV 85.5 MCH 29.0 MCHC 33.9 RDW 13.6 Plt Count 287 Neut % (Auto) 73.9 Lymph % (Auto) 18.9 L [place] % (Auto) 6.2 Eos % (Auto) 0.6 L Baso % (Auto) 0.4 Neut # (Auto) 7000 Lymph # (Auto) 1800 [place] # (Auto) 600 Eos # (Auto) 100 Baso # (Auto) 0 Assessment and Plan Assessment and Plan Assessment and Plan narrative: 38 week 6 day gestation with prior section in active labor. Patient is also requesting sterilization by tubal ligation
--- NOTE | 2019-10-23 03:17 | PM.PREOP ---
Pre-operative Note COVID-19 COVID-19 status: Result pending Result date/Date tested (Pos, Neg/Pending): 10/23/19 Interval Note History & Physical reviewed/Exam performed by Physician: Yes Changes to H&P: No
[2019-10-23] MEDS: CEFAZOLIN 2 GM/100 ML FROZ.PIGGY IV (03:21)
--- NOTE | 2019-10-23 03:46 | SUR.OPER ---
Supine on Padded OR bed, head on pillow, safety belt at thigh, arms secured on padded arm boards at <90 degrees abduction. Bump under right buttock. Legs uncrossed with pillow under knees, gel pad to heels, tape over blanket to lower legs.
[2019-10-23 04:03] LABS: COVID19 -Nasal RAPID Negative (Negative)
[2019-10-23] MEDS: ACETAMINOPHEN IV 1,000 MG/100 ML VIAL 400 MG IV (04:06)
--- NOTE | 2019-10-23 04:06 | SUR.OPER ---
viable baby girl born at 0405, placenta delivered at 0408. Cord blood and placenta sent to OB with Suzan JAMESON RN.
--- NOTE | 2019-10-23 04:53 | P.OP_ITS ---
Operative Date/Time/Diagnoses Date of procedure: 10/23/19 Time of procedure: 04:53 Pre-op diagnosis: 38 week gestation with prior in active labor and request for sterilization Post-op diagnosis: same Procedure & Clinicians Procedure: Repeat low-transverse section with bilateral tubal ligation Same procedure as scheduled: Yes Indications: 38 week gestation in active labor with prior and wish for sterilization Surgeon: Chelsey Ruby Transmission Systems Operator: Edith Montes De Oca Click Yes if Unassisted: No Anesthesia Type: Spinal Operative Notes Findings: Normal tubes ovaries and uterus with viable female weighing 6 lb 1 oz with Apgars of 9 and 9 Closure Type: primary Specimen(s): other (Bilateral tube segments) Applied: catheter (Adair) Estimated Blood Loss (mL): 200 Blood products transfused: none Procedure in detail: The patient was brought to the operating room where she underwent a spinal for anesthesia. She was placed in a supine position with a left lateral tilt. A Adair catheter was placed. Pulsatile stockings were placed and functional throughout the case. 2 g of Ancef were given IV prior to the incision. Warming was in place. The patient was prepped and draped in usual sterile fashion. A low transverse incision was made with a scalpel through the prior incision and the incision was carried down to the fascial layer which was incised transversely with scissors. The midline attachments are superiorly and inferiorly. The rectus muscles were in the midline and the peritoneal incision was made with no damage to internal structures. The peritoneum was incised and superiorly and inferiorly. Bladder blade was placed and a bladder flap was developed and the bladder held away from the lower uterine segment. An incision was made in the uterus with the scalpel and the incision was extended with stretching. The head was elevated out of the abdomen and with fundal pressure the baby was delivered. The infant was bulb suctioned for clear fluid and handed off to the warmer. Cord blood was collected. The placenta delivered spontaneously with traction. The uterus was cleaned with clean laps. The uterine incision was closed in 2 layers of 0 chromic suture the first a running locking layer the second an imbricating layer. The bladder peritoneum was repaired with 2-0 Vicryl suture. The gutters were cleaned of any remaining fluids and ovaries and tubes were observed to be normal. A segment of the right fallopian tube was grasped the Andrew and tied off x2 0 plain suture with the intervening section removed. The segment ends were bovied. Same procedure performed on the left side. The 2 sections of fallopian tube were sent to pathology. Adequate hemostasis was noted. The perineum was closed with 2-0 Vicryl suture. The fascia layer was closed with 0 Vicryl suture with 2 stitches. The incision was irrigated and adequate hemostasis noted. The incision was closed with interrupted 3-0 Vicryl sutures and then a subcuticular stitch of 4-0 Vicryl suture. Steri-Strips were placed. The uterus was massaged to remove any clots. The patient went to recovery room in good condition. Counts of instruments and sponges were correct. Complications: none Post-operative Condition: stable Disposition: other ( Center) Plan for aftercare: Routine post section care
[2019-10-23] MEDS: HYDROMORPHONE 2 MG INJ IV (05:01)
--- NOTE | 2019-10-23 05:42 | SUR.PHASEI ---
[address] Vela and Flori checked on pt, Dr. Ruby spoke with her. VSS, improved pain to 4/10; pt declined more IV med, will have PO on arrival to Center. Resp unlabored, skin warm and dry, pt lying on her left side for improved comfort w/pillows supporting back and between knees. Will turn for fundus and vag bleeding check upon transfer 05 to center room 1. Bed down and locked, SCD's on. Center RN checked fundus and bleeding. Dad and baby in the room. Pt c/o right sided low abdominal pain upon turning to her back. She'd previously stated that this is where she had pain during . RN aware (phone call from PACU) that she is ready for PO med. No questions/concerns. RN informed if ketorolac and IV tylenol in OR.
[2019-10-23] MEDS: LACTATED RINGERS 1,000 ML 100 ML IV (05:51)
[2019-10-23] MEDS: OXYCODONE IR 5 MG TABLET PO ×4 (05:51→22:16)
[2019-10-23] MEDS: ONDANSETRON 4 MG/2 ML INJ IV (08:57)
[2019-10-23] MEDS: ACETAMINOPHEN 325 MG TABLET 650 MG PO ×3 (11:10→22:16)
[2019-10-23] MEDS: KETOROLAC 30 MG/ML VIAL IV ×3 (11:11→23:49)
[2019-10-23] MEDS: DESMOPRESSIN 10 EACH NASAL (17:00)
[2019-10-24] MEDS: OXYCODONE IR 5 MG TABLET PO (04:55)
[2019-10-24] MEDS: ACETAMINOPHEN 325 MG TABLET 650 MG PO (04:56)
[2019-10-24 07:20] LABS: Add Manual Diff / Slide Review NO; Basophils Absolute Auto 0 /uL (0-100); Basophils Percent Auto 0.3 % (0-2); Eosinophils Absolute Auto 100 /uL (0-450); Eosinophils Percent Auto 1.3 % (2-4); Hematocrit 29.5 % (36-46); Lymphocytes Absolute Auto 1900 /uL (1100-4500); Mean Corpuscular HGB Conc 33.9 % (30-36); Mean Corpuscular Hemoglobin 29.5 PG (26-34); Mean Corpuscular Volume 86.8 fL (80-100); Monocytes Absolute Auto 800 /uL (0-900); Monocytes Percent Auto 9.9 % (3-14); Neutrophils Absolute Auto 5200 /uL (1500-7000); Neutrophils Percent Auto 64.5 % (50-75); Platelet Count 237 X10^3/uL (150-400); Red Cell Distribution Width 13.9 % (11.6-14.8)
[2019-10-24 07:30] LABS: Carbon Dioxide 24 mmol/L (22-32); Chloride 102 mmol/L (98-107); HEMOLYSIS < 15 (0-50); Potassium 3.9 mmol/L (3.4-5.1); Sodium 129 mmol/L (137-145)
[2019-10-24] MEDS: OXYCODONE/ACETAMINOPHEN 5/325 TABLET 2 TAB PO ×4 (09:26→23:02)
[2019-10-24] MEDS: DOCUSATE 250 MG CAPSULE PO (09:27)
[2019-10-24] MEDS: PRENATAL VIT,CALC/IRON/FOLIC 1 TABLET 1 TAB PO (09:27)
[2019-10-24] MEDS: IBUPROFEN 600 MG TABLET PO ×2 (09:27→18:06)
--- NOTE | 2019-10-24 17:58 | PM.OBPN.1 ---
Subjective - OB Subjective Patient comments: incisional pain baby status: doing well feeding status: exclusively breast feeding Date Patient Seen: 10/24/19 Time Patient Seen: 17:58 Interval history: Postoperative day 1. Repeat section. Patient is ready to have her Adair catheter removed and ambulate. She is doing okay with pain. Exam Vital Signs (past 8 hours): Blood pressure 112/76, pulse of 80, temperature 98.1? Oxygen Delivery Method Room Air Narrative Exam Narrative: Abdomen is soft, nontender. Uterus is firm, at U, nontender. Dressing is clean, dry, intact. Mild lochia. Extremities with trace edema and nontender. 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
[2019-10-24 18:45] LABS: Carbon Dioxide 24 mmol/L (22-32); Chloride 101 mmol/L (98-107); HEMOLYSIS < 15 (0-50); Potassium 4.2 mmol/L (3.4-5.1); Sodium 130 mmol/L (137-145)
[2019-10-25] MEDS: IBUPROFEN 600 MG TABLET PO ×3 (00:06→13:47)
[2019-10-25] MEDS: DOCUSATE 250 MG CAPSULE PO (08:04)
[2019-10-25] MEDS: OXYCODONE/ACETAMINOPHEN 5/325 TABLET 2 TAB PO ×2 (08:04→13:46)
[2019-10-25] MEDS: PRENATAL VIT,CALC/IRON/FOLIC 1 TABLET 1 TAB PO (08:08)
[2019-10-25 11:56] LABS: Carbon Dioxide 26 mmol/L (22-32); Chloride 99 mmol/L (98-107); HEMOLYSIS < 15 (0-50); Sodium 129 mmol/L (137-145)
--- NOTE | 2019-10-25 12:01 | PM.OBDS.1 ---
Discharge Providers Provider Date of admission: 10/23/19 01:54 Discharge Date: 10/25/19 Primary care physician: Kelle Garcia DO Consults: 10/23/19 06:40 Consult to Community Liaison Officer Routine Comment: Discharge provider: Chelsey Ruby MD Summary Hospital Course Date Patient Seen: 10/25/19 Time Patient Seen: 12:01 Procedures: Repeat low-transverse section with bilateral tubal ligation Hospital Course: Patient arrived in Labor and delivery with spontaneous rupture membranes in active labor so we proceeded with planned repeat low-transverse section and tubal ligation. Patient did well post operatively other than some difficulty with her low sodium. She is delaying her vasopressin use. She is urinating. She had a bowel movement. She is working with the exchange underwriting consultant for her breast-feeding. She is ambulatory. No headaches, scotomata, epigastric pain. Peripartum Data Delivery Method: Section (Repeat) Procedures: Repeat low-transverse section and bilateral tubal ligation complications: other (Low sodium) 1: Gender: Female Disposition of : home Discharge Diagnosis (1) Diabetes insipidus: Status: Chronic Problem Details: from surgical resection of pituitary adenoma (2) Delivery by section: Status: Acute (3) Sterilization: Status: Acute (4) Hyponatremia: Status: Resolved Status at Discharge Cognitive/behavioral status at discharge: oriented Functional status at discharge: independent ambulation Overall status at discharge: patient is progressing back to baseline (Patient is aware of her low sodium and is delaying her DDAVP sprays) Time Spent with Patient Time attestation: Total time spent providing and/or coordinating discharge services: Objective Labs Result Diagrams: 10/24/19 06:32 10/25/19 11:30 Labs: Laboratory Results - last 24 hr 10/24/19 10/25/19 18:30 11:30 Sodium 130 L 129 L Potassium 4.2 4.0 Chloride 101 99 Carbon Dioxide 24 26 Exam Vital Signs (past 8 hours): Blood pressure 104/63, pulse 76, temperature 99? Oxygen Delivery Method Room Air Narrative Exam Narrative: Abdomen is soft, nontender. Uterus is firm, at U, nontender. Dressing is clean, dry, intact. Mild lochia. Extremities with trace edema and nontender. Patient's blood type is O positive and she is rubella immune. She received Tdap in the 3rd trimester. Discharge Plan Discharge Plan Patient Disposition: Home Discharge orders & Medications Prescriptions: New oxycodone-acetaminophen 5-325 mg Tablet 2 tab PO Q4HR PRN (Reason: Pain, Severe (7-10)) Qty: 30 RF: 0 ibuprofen 600 mg Tablet 600 mg PO Q6HR PRN (Reason: Fever/Mild Pain (1-3)) Qty: 30 RF: 0 docusate sodium 250 mg Capsule 250 mg PO DAILY Qty: 30 RF: 0 Continued desmopressin [DDAVP] 10 mcg/spray (0.1 mL) spray with pump 10 mcg NASAL .COMPLEX Qty: 45 RF: 3 (DME) [employer] breast Pump and Supplies See Rx Instructions .ROUTE .MEDSUPPLY Qty: 1 RF: 0 prenat.vits,david,iua-gwnk-vujdc Tablet 1 tab PO DAILY Qty: 90 RF: 2 Follow up/Referrals: Chelsey Ruby MD [Physician] - 1 Week (Aquacel removaland incision check on 11/01/2019 @[address] Ruby) Kelle Garcia DO [Primary Care Provider] - Diet/Activity/Treatments Diet: Regular Activity: No lifting over 20 lb or anything in vagina for 6 weeks Skin/Wound/Dressing Care Report to your healthcare provider any signs of infection, such as:: chills, fever and increased pain Dressing: Leave dressing on until 1 week postop visit Visit Report/Discharge Packet Stand Alone Forms: Discharge: Care Discharge Data Primary Care Provider: Kelle Garcia
[2019-10-25 12:21] VITALS: BP 104/63; PULSE 76; RESP 16; TEMP 37.2
== END 2019-10-25 15:08 | disposition home or self-care (01) | DRG 540 ==
PROVIDERS: Admitting Provider Obstetrics & Gynecology; PCP Family Medicine; Referring Provider Obstetrics & Gynecology; Visit Provider Specialist
PROC: 10D00Z1 Extraction of Products of Conception, Low, Open Approach (ICD-10-PCS; CPT 59514; principal; 2019-10-23 03:00)
DX: O34.219 Maternal care for unspecified type scar from previous cesarean delivery (principal); E23.2 Diabetes insipidus; O75.82 Onset (spontaneous) of labor after 37 completed weeks of gestation but before 39 completed weeks gestation, with delivery by (planned) cesarean section; O99.824 Streptococcus B carrier state complicating childbirth; Z30.2 Encounter for sterilization; Z3A.38 38 weeks gestation of pregnancy; Z37.0 Single live birth; Z11.59 Encounter for screening for other viral diseases; Z01.812 Encounter for preprocedural laboratory examination
CPT/HCPCS: 36415; 58611; 59050; 59514; 80051; 85025; 86850; 86900; 86901; 87635; G0379; J0131; J0690; J1170; J1885; J2250; J2274; J2405; J2590; J3010

== ENCOUNTER → 2019-10-30 15:02 | Outpatient (CLI) | payer OTHER, MEDICAID, SELFPAY ==
[2019-10-30 16:45] LABS: Carbon Dioxide 24 mmol/L (22-32); Chloride 98 mmol/L (98-107); HEMOLYSIS < 15 (0-50); Potassium 4.8 mmol/L (3.4-5.1); Sodium 131 mmol/L (137-145)
== END ==
PROVIDERS: PCP Family Medicine; Referring Provider Specialist; Visit Provider Specialist
DX: E23.2 Diabetes insipidus (principal)
CPT/HCPCS: 36415; 80051

== ENCOUNTER → 2019-11-13 13:41 | Outpatient (CLI) | payer OTHER, MEDICAID, SELFPAY ==
[2019-11-13 15:17] LABS: Carbon Dioxide 26 mmol/L (22-32); Chloride 103 mmol/L (98-107); HEMOLYSIS < 15 (0-50); Potassium 4.6 mmol/L (3.4-5.1); Sodium 137 mmol/L (137-145)
[2019-11-13 16:48] LABS: Prolactin 88.5 ng/mL (3.0-18.6)
== END ==
PROVIDERS: PCP Family Medicine; Referring Provider Specialist; Visit Provider Specialist
DX: E23.2 Diabetes insipidus (principal)
CPT/HCPCS: 36415; 80051; 84146

== ENCOUNTER → 2020-05-27 15:33 | Outpatient (CLI) | payer OTHER, MEDICAID, SELFPAY ==
[2020-05-27 16:20] LABS: BUN Creatinine Ratio 21.1 (6-22); Blood Urea Nitrogen 15 mg/dL (7-17); Calcium 9.1 mg/dL (8.4-10.2); Carbon Dioxide 27 mmol/L (22-32); Chloride 104 mmol/L (98-107); Estimated Glomerular Filt Rate > 60.0 mL/min (>60); Glucose 103 mg/dL (70-100); HEMOLYSIS < 15 (0-50); Potassium 4.4 mmol/L (3.4-5.1); Sodium 138 mmol/L (137-145)
== END ==
PROVIDERS: PCP Family Medicine; Referring Provider Family Medicine; Visit Provider Family Medicine
DX: E23.2 Diabetes insipidus (principal)
CPT/HCPCS: 36415; 80048

== ENCOUNTER → 2020-11-04 10:59 | Outpatient (CLI) | payer OTHER, MEDICAID, SELFPAY ==
[2020-11-04 12:48] LABS: Blood Urea Nitrogen 11 mg/dL (7-17); Calcium 9.2 mg/dL (8.4-10.2); Carbon Dioxide 23 mmol/L (22-32); Chloride 106 mmol/L (98-107); Estimated Glomerular Filt Rate > 60.0 mL/min (>60); Glucose 97 mg/dL (70-100); HEMOLYSIS < 15 (0-50); Potassium 4.3 mmol/L (3.4-5.1); Sodium 135 mmol/L (137-145)
[2020-11-04 13:01] LABS: Prolactin 10.1 ng/mL (3.0-18.6)
[2020-11-04 13:15] LABS: TSH w/ Reflex to FT4 1.68 uIU/mL (0.47-4.68)
== END ==
PROVIDERS: PCP Family Medicine; Referring Provider Family Medicine; Visit Provider Family Medicine
DX: D35.2 Benign neoplasm of pituitary gland (principal); E23.2 Diabetes insipidus; E87.1 Hypo-osmolality and hyponatremia
CPT/HCPCS: 36415; 80048; 84146; 84443

== ENCOUNTER → 2021-02-26 12:53 | Outpatient (CLI) | payer OTHER, MEDICAID, SELFPAY ==
[2021-02-26 14:37] LABS: COVID19 -Nasal RAPID Negative (Negative)
== END ==
PROVIDERS: PCP Family Medicine; Visit Provider Physician Assistant
DX: Z20.822 Contact with and (suspected) exposure to COVID-19 (principal)
CPT/HCPCS: 87635

== ENCOUNTER → 2021-06-04 15:03 | Outpatient (CLI) | payer OTHER, MEDICAID, SELFPAY ==
[2021-06-04 16:44] LABS: BUN Creatinine Ratio 20.6 (6-22); Blood Urea Nitrogen 14 mg/dL (7-17); Calcium 8.7 mg/dL (8.4-10.2); Carbon Dioxide 26 mmol/L (22-32); Chloride 102 mmol/L (98-107); Estimated Glomerular Filt Rate > 60.0 mL/min (>60); Glucose 94 mg/dL (70-100); HEMOLYSIS < 15 (0-50); Potassium 4.4 mmol/L (3.4-5.1); Sodium 136 mmol/L (137-145)
== END ==
PROVIDERS: PCP Family Medicine; Referring Provider Family Medicine; Visit Provider Family Medicine
DX: D35.2 Benign neoplasm of pituitary gland (principal); E23.2 Diabetes insipidus
CPT/HCPCS: 80048

== ENCOUNTER → 2021-07-20 11:31 | Outpatient (CLI) | payer OTHER, MEDICAID, SELFPAY ==
--- NOTE | 2021-07-20 11:32 | DI.MRI.S_ITS ---
PROCEDURE: MR HEAD/BRAIN WO CON INDICATIONS: 36-year-old female with history of pituitary adenoma resected December 2002. Surveillance study. TECHNIQUE: Noncontrast axial T1 spin echo, axial T2 fast spin echo, sagittal and axial FLAIR, coronal T2 fast spin echo, axial gradient echo, axial diffusion and ADC through the brain. COMPARISON: [facility], MR, BRAIN (PITUITARY) W&WO CONTRARMAAN, 05/18/2016, 10:57. FINDINGS: Image quality: Excellent. CSF Spaces: Basal cisterns are patent. No extra-axial fluid collections. Ventricles are normal in size and shape. Brain: No intracranial masses or hemorrhage. Rodriguez/white matter interface is normal. Brainstem appears normal. Diffusion-weighted images demonstrate no acute ischemic insult. No chronic ischemic insults. Normal intravascular flow voids are present. Visualized portions of the sella shows a grossly unremarkable pituitary with convex superior capsule and midline infundibulum Skull and face: Calvarium has normal marrow signal. Orbits appear normal. Sinuses: Sinuses and mastoids are clear. IMPRESSION: 1. Grossly unremarkable pituitary without evidence of recurrent tumor on this MRI brain study. Consider follow-up MRI pituitary if there is clinical need for further evaluation. 2. Unremarkable MRI of the brain Approved by: Orion Anderson M.D. on 07/20/2021 at 15:05
== END ==
PROVIDERS: PCP Family Medicine; Referring Provider Family Medicine; Visit Provider Family Medicine
DX: D35.2 Benign neoplasm of pituitary gland (principal); E23.2 Diabetes insipidus
CPT/HCPCS: 70551

== ENCOUNTER → 2021-09-22 11:35 | Outpatient (CLI) | payer OTHER, MEDICAID, SELFPAY ==
[2021-09-22 12:31] LABS: BUN Creatinine Ratio 22.2 (6-22); Blood Urea Nitrogen 14 mg/dL (7-17); Calcium 8.7 mg/dL (8.4-10.2); Carbon Dioxide 26 mmol/L (22-32); Chloride 103 mmol/L (98-107); Estimated Glomerular Filt Rate > 60 mL/min (>60); Glucose 104 mg/dL (70-100); HEMOLYSIS < 15 (0-50); Potassium 4.3 mmol/L (3.4-5.1); Sodium 137 mmol/L (137-145)
== END ==
PROVIDERS: PCP Pediatrics; Referring Provider Registered Nurse Diabetes Educator; Visit Provider Registered Nurse Diabetes Educator
DX: E23.2 Diabetes insipidus (principal); N93.9 Abnormal uterine and vaginal bleeding, unspecified
CPT/HCPCS: 36415; 80048

== ENCOUNTER → 2022-02-02 10:23 | Outpatient (CLI) | payer OTHER, MEDICAID, SELFPAY ==
[2022-02-02 11:09] LABS: Hematocrit 37.8 % (36-46); Hemoglobin 13.1 g/dL (12.0-16.0); Mean Corpuscular HGB Conc 34.8 % (30-36); Mean Corpuscular Hemoglobin 29.3 PG (26-34); Mean Corpuscular Volume 84.3 fL (80-100); Platelet Count 317 X10^3/uL (150-400); Red Blood Cell Count 4.48 X10^6/uL (4.0-5.2); Red Cell Distribution Width 12.9 % (11.6-14.8); White Blood Cell Count 6.9 X10^3/uL (4.5-11.0)
[2022-02-02 12:01] LABS: Alanine Aminotransferase 46 IU/L (<35); Albumin Globulin Ratio 1.6 (1.0-2.8); Alkaline Phosphatase 63 U/L (38-126); Aspartate Aminotransferase 22 IU/L (14-36); BUN Creatinine Ratio 17.1 (6-22); Bilirubin Total 0.3 mg/dL (0.2-1.3); Blood Urea Nitrogen 12 mg/dL (7-17); Calcium 8.8 mg/dL (8.4-10.2); Carbon Dioxide 27 mmol/L (22-32); Chloride 101 mmol/L (98-107); Cholesterol 188 mg/dL (140-199); Estimated Glomerular Filt Rate > 60 mL/min (>60); Globulin 2.5 g/dL (1.7-4.1); Glucose 97 mg/dL (70-100); HDL Cholesterol 41 mg/dL (40-60); HEMOLYSIS < 15 (0-50); LDL Cholesterol Calculated 117 mg/dL (<100); Potassium 4.5 mmol/L (3.4-5.1); Sodium 134 mmol/L (137-145); Total Protein 6.5 g/dL (6.3-8.2); Triglycerides 151 mg/dL (35-150)
[2022-02-02 12:28] LABS: TSH w/ Reflex to FT4 1.58 uIU/mL (0.47-4.68)
== END ==
PROVIDERS: PCP Family Medicine; Referring Provider Registered Nurse Diabetes Educator; Visit Provider Registered Nurse Diabetes Educator
DX: Z00.00 Encounter for general adult medical examination without abnormal findings (principal); E66.9 Obesity, unspecified; E23.2 Diabetes insipidus; E87.1 Hypo-osmolality and hyponatremia
CPT/HCPCS: 36415; 80053; 80061; 84443; 85027

== ENCOUNTER → 2022-06-06 10:35 | Outpatient (CLI) | payer OTHER, MEDICAID, SELFPAY ==
[2022-06-06 12:20] LABS: Alanine Aminotransferase 37 IU/L (<35); Albumin 4.2 g/dL (3.5-5.0); Albumin Globulin Ratio 1.6 (1.0-2.8); Alkaline Phosphatase 59 U/L (38-126); Aspartate Aminotransferase 26 IU/L (14-36); BUN Creatinine Ratio 21.4 (6-22); Bilirubin Total 0.5 mg/dL (0.2-1.3); Blood Urea Nitrogen 12 mg/dL (7-17); Calcium 8.7 mg/dL (8.4-10.2); Carbon Dioxide 23 mmol/L (22-32); Chloride 99 mmol/L (98-107); Estimated Glomerular Filt Rate > 60 mL/min (>60); Globulin 2.6 g/dL (1.7-4.1); Glucose 103 mg/dL (70-100); HEMOLYSIS < 15 (0-50); Potassium 4.5 mmol/L (3.4-5.1); Sodium 131 mmol/L (137-145); Total Protein 6.8 g/dL (6.3-8.2)
== END ==
PROVIDERS: PCP Family Medicine; Referring Provider Internal Medicine; Visit Provider Internal Medicine
DX: E23.2 Diabetes insipidus (principal)
CPT/HCPCS: 36415; 80053

== ENCOUNTER → 2022-06-17 12:05 | Outpatient (CLI) | payer OTHER, MEDICAID, SELFPAY ==
--- NOTE | 2022-06-17 12:06 | DI.US.S_ITS ---
PROCEDURE: US ABDOMEN LIMITED INDICATIONS: RUQ PAIN TECHNIQUE: Real-time focused scanning was performed of the abdomen, with image documentation. COMPARISON: [facility], US, US ABDOMEN COMPLETE, 03/27/2019, 14:55. [facility], US, US ABDOMEN COMPLETE, 06/08/2018, 13:47. FINDINGS: The liver is normal in size and unchanged in increased echotexture consistent with fatty infiltration with reference to the prior ultrasound studies from 2019 an ovoid hypoechoic structure is present adjacent to the gallbladder fossa measuring 3.1 x 2.3 x 3.6 cm. Given the chronicity of this finding statistically this is most likely focal sparing from otherwise diffuse fatty infiltration but a atypical hemangioma could also produce this appearance. No gallbladder abnormality is found, the bile ducts appear normal and the pancreas visualized appears normal. IMPRESSION: No change from comparison study in June of 2018. Focal fatty infiltration is the presumed cause, versus atypical hemangioma, for the hypoechoic structure in a background of diffuse increased echotexture (diffuse fatty infiltration) throughout the liver as has been previously the case. This structure measures 3.1 x 2.3 x 3.6 cm. Given its chronicity it presumably is benign. If clinically desired contrast-enhanced MR scanning could be utilized to further characterize the structure. Dictated by: Anupam Daniels M.D. on 06/17/2022 at 16:52 Approved by: Anupam Daniels M.D. on 06/17/2022 at 16:58
== END ==
PROVIDERS: PCP Family Medicine; Referring Provider Family Medicine; Visit Provider Family Medicine
DX: K58.9 Irritable bowel syndrome, unspecified (principal); R10.11 Right upper quadrant pain; G89.29 Other chronic pain
CPT/HCPCS: 76705

== ENCOUNTER → 2022-07-27 10:28 | Outpatient (CLI) | payer OTHER, MEDICAID, SELFPAY ==
[2022-07-27 12:32] LABS: Blood Urea Nitrogen 12 mg/dL (7-17); Calcium 9.1 mg/dL (8.4-10.2); Carbon Dioxide 27 mmol/L (22-32); Chloride 102 mmol/L (98-107); Estimated Glomerular Filt Rate > 60 mL/min (>60); Glucose 95 mg/dL (70-100); HEMOLYSIS < 15 (0-50); Potassium 4.6 mmol/L (3.4-5.1); Sodium 135 mmol/L (137-145)
== END ==
PROVIDERS: PCP Family Medicine; Referring Provider Family Medicine; Visit Provider Family Medicine
DX: E23.2 Diabetes insipidus (principal); E87.1 Hypo-osmolality and hyponatremia
CPT/HCPCS: 36415; 80048

== ENCOUNTER → 2022-12-27 09:58 | Outpatient (CLI) | payer OTHER, SELFPAY ==
[2022-12-27 11:28] LABS: Hematocrit 41.7 % (36-46); Hemoglobin 14.1 g/dL (12.0-16.0); Mean Corpuscular HGB Conc 33.8 % (30-36); Mean Corpuscular Hemoglobin 29.4 PG (26-34); Mean Corpuscular Volume 86.9 fL (80-100); Platelet Count 369 X10^3/uL (150-400); Red Cell Distribution Width 13.1 % (11.6-14.8); White Blood Cell Count 6.8 X10^3/uL (4.5-11.0)
[2022-12-27 12:05] LABS: Alanine Aminotransferase 54 IU/L (<35); Albumin 4.4 g/dL (3.5-5.0); Albumin Globulin Ratio 1.6 (1.0-2.8); Alkaline Phosphatase 56 U/L (38-126); Aspartate Aminotransferase 32 IU/L (14-36); Bilirubin Total 0.6 mg/dL (0.2-1.3); Blood Urea Nitrogen 12 mg/dL (7-17); Calcium 9.5 mg/dL (8.4-10.2); Carbon Dioxide 26 mmol/L (22-32); Chloride 102 mmol/L (98-107); Cholesterol 228 mg/dL (140-199); Estimated Glomerular Filt Rate > 60 mL/min (>60); Globulin 2.7 g/dL (1.7-4.1); Glucose 102 mg/dL (70-100); HDL Cholesterol 41 mg/dL (40-60); HEMOLYSIS 24 (0-50); LDL Cholesterol Calculated 151 mg/dL (<100); Potassium 4.5 mmol/L (3.4-5.1); Sodium 135 mmol/L (137-145); Total Protein 7.1 g/dL (6.3-8.2); Triglycerides 182 mg/dL (35-150)
== END ==
PROVIDERS: PCP Family Medicine; Referring Provider Family Medicine; Visit Provider Family Medicine
DX: R10.11 Right upper quadrant pain (principal); G89.29 Other chronic pain; E87.1 Hypo-osmolality and hyponatremia; E66.9 Obesity, unspecified
CPT/HCPCS: 36415; 80053; 80061; 85027

== ENCOUNTER → 2023-03-30 10:30 | Outpatient (CLI) | payer OTHER, SELFPAY ==
[2023-03-30 12:44] LABS: Alanine Aminotransferase 53 IU/L (<35); Albumin 4.3 g/dL (3.5-5.0); Albumin Globulin Ratio 1.5 (1.0-2.8); Alkaline Phosphatase 59 U/L (38-126); Aspartate Aminotransferase 36 IU/L (14-36); BUN Creatinine Ratio 19.4 (6-22); Bilirubin Total 0.7 mg/dL (0.2-1.3); Blood Urea Nitrogen 12 mg/dL (7-17); Calcium 9.6 mg/dL (8.4-10.2); Carbon Dioxide 26 mmol/L (22-32); Chloride 102 mmol/L (98-107); Cholesterol 234 mg/dL (140-199); Estimated Glomerular Filt Rate > 60 mL/min (>60); Globulin 2.8 g/dL (1.7-4.1); Glucose 96 mg/dL (70-100); HDL Cholesterol 41 mg/dL (40-60); HEMOLYSIS < 15 (0-50); LDL Cholesterol Calculated 151 mg/dL (<100); Potassium 4.5 mmol/L (3.4-5.1); Sodium 135 mmol/L (137-145); Total Protein 7.1 g/dL (6.3-8.2); Triglycerides 208 mg/dL (35-150)
== END ==
PROVIDERS: PCP Family Medicine; Referring Provider Family Medicine; Visit Provider Family Medicine
DX: K76.0 Fatty (change of) liver, not elsewhere classified (principal); E66.01 Morbid (severe) obesity due to excess calories; E23.2 Diabetes insipidus; N93.9 Abnormal uterine and vaginal bleeding, unspecified; R73.9 Hyperglycemia, unspecified
CPT/HCPCS: 36415; 80053; 80061; 83036

== ENCOUNTER → 2023-04-20 16:31 | Outpatient (CLI) | payer OTHER, SELFPAY ==
[2023-04-20 19:43] LABS: Influenza A - CEPHEID Flu A NEGATIVE (NEGATIVE); Influenza B - CEPHEID Flu B NEGATIVE (NEGATIVE); Respiratory Syncytial Virus Negative (Negative)
[2023-04-20 19:49] LABS: COVID-19 CEPHEID 4-PLEX PCR Negative (Negative)
== END ==
PROVIDERS: PCP Family Medicine; Visit Provider Physician Assistant
DX: R05.1 Acute cough (principal); J06.9 Acute upper respiratory infection, unspecified
CPT/HCPCS: 0241U

== ENCOUNTER → 2023-04-20 16:51 | Outpatient (CLI) | payer OTHER, SELFPAY ==
--- NOTE | 2023-04-20 16:53 | DI.RAD.S_ITS ---
PROCEDURE: XR CHEST 2V INDICATIONS: cough with wheezing x 2 weeks, daughter +RSV TECHNIQUE: 2 views of the chest were acquired. COMPARISON: [facility], CR, XR CHEST 1V, 05/17/2018, 19:33. FINDINGS: Surgical changes and devices: None. Lungs and pleura: Lungs are clear. No pleural effusions or pneumothorax. Mediastinum: Mediastinal contours are normal. Heart size is normal. Bones and chest wall: No suspicious bony abnormalities. Soft tissues appear unremarkable. IMPRESSION: No acute cardiopulmonary abnormality is seen. Dictated by: Alcon Humphries M.D. on 04/21/2023 at 9:44 Approved by: Alcon Humphries M.D. on 04/21/2023 at 9:46
== END ==
LOC: RAD 16:52
PROVIDERS: PCP Family Medicine; Referring Provider Physician Assistant; Visit Provider Physician Assistant
DX: J06.9 Acute upper respiratory infection, unspecified (principal); R05.1 Acute cough
CPT/HCPCS: 0241U; 71046

== ENCOUNTER → 2023-09-06 16:57 | Outpatient (CLI) | payer OTHER, SELFPAY ==
--- NOTE | 2023-09-06 16:58 | DI.RAD.S_ITS ---
PROCEDURE: XR FOOT LT 2V INDICATIONS: foot pain TECHNIQUE: 2 views of the foot were acquired. COMPARISON: None. FINDINGS: Bones: No fractures or dislocations. No suspicious bony lesions. Calcaneal spur is present. Soft tissues: No tibiotalar joint effusion. Achilles tendon appears normal. IMPRESSION: No visualized acute fracture or dislocation. However, if clinical concern and/or pain persist, short interval imaging followup in 7-10 days is recommended, as occult injury cannot be definitively excluded. Dictated by: Odalis Connors M.D. on 09/07/2023 at 20:02 Approved by: Odalis Connors M.D. on 09/07/2023 at 20:03
== END ==
PROVIDERS: PCP Family Medicine; Referring Provider Family Medicine; Visit Provider Family Medicine
DX: M79.672 Pain in left foot (principal); R73.9 Hyperglycemia, unspecified; N93.9 Abnormal uterine and vaginal bleeding, unspecified; E87.1 Hypo-osmolality and hyponatremia; R53.83 Other fatigue; N95.1 Menopausal and female climacteric states
CPT/HCPCS: 73620

== ENCOUNTER → 2023-09-12 11:20 | Outpatient (CLI) | payer OTHER, SELFPAY ==
[2023-09-12 13:14] LABS: Add Manual Diff / Slide Review NO; Basophils Absolute Auto 0 /uL (0-100); Basophils Percent Auto 0.6 % (0-2); Eosinophils Absolute Auto 100 /uL (0-450); Eosinophils Percent Auto 1.1 % (2-4); Hematocrit 40.4 % (36-46); Hemoglobin 13.9 g/dL (12.0-16.0); Lymphocytes Absolute Auto 1900 /uL (1100-4500); Lymphocytes Percent Auto 25.8 % (25-40); Mean Corpuscular HGB Conc 34.3 % (30-36); Mean Corpuscular Hemoglobin 29.4 PG (26-34); Mean Corpuscular Volume 85.7 fL (80-100); Monocytes Absolute Auto 500 /uL (0-900); Monocytes Percent Auto 7.1 % (3-14); Neutrophils Absolute Auto 4900 /uL (1500-7000); Neutrophils Percent Auto 65.4 % (50-75); Platelet Count 348 X10^3/uL (150-400); Red Blood Cell Count 4.71 X10^6/uL (4.0-5.2); Red Cell Distribution Width 13.1 % (11.6-14.8); White Blood Cell Count 7.5 X10^3/uL (4.5-11.0)
[2023-09-12 13:37] LABS: Hemoglobin A1C% w Est Avg Glu 5.1 % (4.0-6.0)
[2023-09-12 13:56] LABS: Alanine Aminotransferase 38 IU/L (<35); Albumin 4.4 g/dL (3.5-5.0); Albumin Globulin Ratio 1.8 (1.0-2.8); Alkaline Phosphatase 58 U/L (38-126); Aspartate Aminotransferase 28 IU/L (14-36); BUN Creatinine Ratio 20.6 (6-22); Bilirubin Total 0.6 mg/dL (0.2-1.3); Blood Urea Nitrogen 13 mg/dL (7-17); Calcium 8.8 mg/dL (8.4-10.2); Carbon Dioxide 25 mmol/L (22-32); Chloride 103 mmol/L (98-107); Estimated Glomerular Filt Rate > 60 mL/min (>60); Globulin 2.4 g/dL (1.7-4.1); Glucose 92 mg/dL (70-100); HEMOLYSIS < 15 (0-50); Potassium 4.4 mmol/L (3.4-5.1); Sodium 133 mmol/L (137-145); Total Protein 6.8 g/dL (6.3-8.2)
[2023-09-12 14:27] LABS: Ferritin 38 ng/mL (6-137)
[2023-09-12 14:41] LABS: Vitamin B12 559 pg/mL (239-931)
[2023-09-12 15:56] LABS: Vitamin D 25 Hydroxy (D3) 31.8 ng/mL (30.0-100.0)
[2023-09-14 00:07] LABS: Insulin Level Total 13.9 uIU/mL (2.6-24.9)
[2023-09-19 07:21] LABS: Estradiol, Sensitive 194.2 pg/mL (.); Testosterone Free 0.57 ng/dL (0.10-0.85); Testosterone Total 16.4 ng/dL (10.0-55.0)
[2023-09-25 06:08] LABS: % Free Progesterone 2.5 % (.); Free Progesterone 51 ng/dL (.); Progesterone, Serum 2050 ng/dL (.)
== END ==
PROVIDERS: PCP Family Medicine; Referring Provider Family Medicine; Visit Provider Family Medicine
DX: R73.9 Hyperglycemia, unspecified (principal); N93.9 Abnormal uterine and vaginal bleeding, unspecified; E87.1 Hypo-osmolality and hyponatremia; R53.83 Other fatigue; N95.1 Menopausal and female climacteric states
CPT/HCPCS: 36415; 80053; 82306; 82607; 82670; 82728; 83036; 83525; 84144; 84402; 84403; 84999; 85025

== ENCOUNTER → 2023-09-13 12:27 | Outpatient (CLI) | payer OTHER, SELFPAY ==
[2023-09-13 12:49] LABS: Cholesterol 219 mg/dL (140-199); HDL Cholesterol 49 mg/dL (40-60); LDL Cholesterol Calculated 136 mg/dL (<100); Triglycerides 169 mg/dL (35-150)
[2023-09-13 12:52] LABS: High Sensitivity CRP - Cardiac 9.8 mg/L (1.0-3.0)
== END ==
PROVIDERS: PCP Family Medicine; Visit Provider Family Medicine
DX: K76.0 Fatty (change of) liver, not elsewhere classified (principal); E78.00 Pure hypercholesterolemia, unspecified
CPT/HCPCS: 80061; 86140

== ENCOUNTER → 2024-02-22 10:53 | Outpatient (CLI) | payer OTHER, SELFPAY ==
[2024-02-22 13:54] LABS: BUN Creatinine Ratio 16.5 (6-22); Blood Urea Nitrogen 13 mg/dL (7-17); Calcium 9.2 mg/dL (8.4-10.2); Carbon Dioxide 24 mmol/L (22-32); Chloride 102 mmol/L (98-107); Estimated Glomerular Filt Rate > 60 mL/min (>60); Glucose 105 mg/dL (70-100); HEMOLYSIS < 15 (0-50); Potassium 4.6 mmol/L (3.4-5.1); Sodium 135 mmol/L (137-145)
[2024-02-22 14:12] LABS: Prolactin 7.5 ng/mL (3.0-18.6)
== END ==
PROVIDERS: PCP Family Medicine; Referring Provider Family Medicine; Visit Provider Family Medicine
DX: N95.1 Menopausal and female climacteric states (principal); Z86.018 Personal history of other benign neoplasm; K76.0 Fatty (change of) liver, not elsewhere classified; N93.9 Abnormal uterine and vaginal bleeding, unspecified
CPT/HCPCS: 36415; 80048; 84146

== ENCOUNTER → 2024-12-17 10:40 | Outpatient (CLI) | payer BC, SELFPAY ==
--- NOTE | 2024-12-17 10:41 | DI.US.S_ITS ---
PROCEDURE: US SOFT TISSUE ABDOMEN INDICATIONS: POSTERIOR THORACIC AREA LUMP TECHNIQUE: Real-time focused scanning was performed of the abdomen, with image documentation. Color Doppler was also utilized. COMPARISON: None. FINDINGS: Scan is performed at the area of clinical concern at the site of the clinically palpable lump within the posterior thoracic region. At this site, no ultrasound abnormalities are seen. No abnormal vascularity can be seen. IMPRESSION: No ultrasound abnormality is seen to correspond to the clinically palpable lump. Dictated by: Apolinar Mcclain M.D. on 12/17/2024 at 10:32 Approved by: Apolinar Mcclain M.D. on 12/17/2024 at 10:33
== END ==
LOC: US 10:41
PROVIDERS: PCP Family Medicine; Referring Provider Family Medicine; Visit Provider Family Medicine
DX: R22.1 Localized swelling, mass and lump, neck (principal)
CPT/HCPCS: 76705

== ENCOUNTER → 2024-12-19 09:43 | Outpatient (CLI) | payer BC, SELFPAY ==
[2024-12-19 10:11] LABS: Hematocrit 42.8 % (36-46); Hemoglobin 14.7 g/dL (12.0-16.0); Mean Corpuscular HGB Conc 34.5 % (30-36); Mean Corpuscular Hemoglobin 29.7 PG (26-34); Mean Corpuscular Volume 86.1 fL (80-100); Platelet Count 357 X10^3/uL (150-400)
[2024-12-19 10:29] LABS: Hemoglobin A1C% w Est Avg Glu 5.1 % (4.0-6.0)
[2024-12-19 10:39] LABS: Alanine Aminotransferase 31 IU/L (<35); Albumin 4.6 g/dL (3.5-5.0); Albumin Globulin Ratio 1.8 (1.0-2.8); Alkaline Phosphatase 64 U/L (38-126); Blood Urea Nitrogen 16 mg/dL (7-17); Calcium 9.3 mg/dL (8.4-10.2); Carbon Dioxide 25 mmol/L (22-32); Chloride 102 mmol/L (98-107); Cholesterol 235 mg/dL (140-199); Estimated Glomerular Filt Rate > 60 mL/min (>60); Globulin 2.6 g/dL (1.7-4.1); Glucose 105 mg/dL (70-99); HDL Cholesterol 52 mg/dL (40-60); HEMOLYSIS < 15 (0-50); Potassium 5.0 mmol/L (3.4-5.1); Sodium 136 mmol/L (137-145); Total Protein 7.2 g/dL (6.3-8.2); Triglycerides 176 mg/dL (35-150)
[2024-12-19 10:55] LABS: Free T3, Triiodothyronine Free 4.88 pg/mL (2.77-5.27)
[2024-12-19 10:57] LABS: Vitamin D 25 Hydroxy (D3) 40.2 ng/mL (30.0-100.0)
== END ==
PROVIDERS: PCP Family Medicine; Referring Provider Family Medicine; Visit Provider Family Medicine
DX: Z01.419 Encounter for gynecological examination (general) (routine) without abnormal findings (principal); E66.9 Obesity, unspecified; E78.5 Hyperlipidemia, unspecified; R53.83 Other fatigue; E50.9 Vitamin A deficiency, unspecified; Z86.018 Personal history of other benign neoplasm
CPT/HCPCS: 36415; 80053; 80061; 82306; 82627; 83036; 84146; 84481; 85027

== ENCOUNTER 2025-02-21 09:24 | Emergency (ER) | payer BC, SELFPAY ==
[2025-02-21] VITALS (8 sets, daily range): BP systolic 146–175; BP diastolic 78–99; PULSE 95–110; RESP 15–24; TEMP 37.1; O2SAT 98–100; BMI 41.8
--- NOTE | 2025-02-21 09:40 | ED.DIZZY ---
HPI - Dizziness General Chief Complaint: Dizziness Stated Complaint: Sent from [facility], heart palpitation this morning Time Seen by Provider: 02/21/25 09:39 Source: patient Mode of arrival: Ambulatory History of Present Illness HPI Narrative: patient brought here by for sudden onset of palpitations dizziness changes in vision but no slurred speech facial droop limb numbness tingling or weakness. Patient had episodes in the past but never saw a provider. No prior history of thyroid disease. No family history arrhythmia. No blood clots in legs or lungs. No history of seizures. No syncope. No chest pain no dyspnea. No prior history of SVT AFib Related Data Previous Rx's ?Medication ?Instructions ?Recorded desmopressin 10 mcg/spray (0.1 mL) See Rx Instructions .Route 07/29/24 nasal spray (non-refrigerated) .COMPLEX #45 mL Allergies Allergy/AdvReac Type Severity Reaction Status Date / Time Sulfa (Sulfonamide Allergy Mild HIVES Verified 02/03/25 16:06 Antibiotics) (SULFA (SULFONAMIDE ANTIBIOTICS)) morphine (MORPHINE) Allergy Unknown Verified 02/03/25 16:06 Review of Systems Review of Systems Narrative: GENERAL: Negative chills, fatigue, malaise, fever, sweats. HEENT: Negative sinus pain, ear pain, sore throat RESPIRATORY: Negative dyspnea, cough CARDIOVASCULAR: Negative chest pain, positivepalpitations GASTROINTESTINAL: Negative vomiting, nausea, abdominal pain : Negative dysuria, frequency, hematuria MUSCULOSKELETAL: Negative muscle or bony pain SKIN: Negative rash, skin lesions NEUROLOGIC: Negative weakness, numbness, positive dizziness ROS Unobtainable: All systems reviewed & are unremarkable except as noted in HPI and below Patient History Medical History (Updated 02/21/25 @ 12:39 by Zachariah Saldana MD) Non-alcoholic fatty liver disease (~06/2022) Migraine (06/02/11) Obesity, Class II, BMI 35-39.9, no comorbidity (03/20/14) Severe obesity (BMI >= 40) History of pituitary adenoma Pain of right heel (~2020) Cervical strain 4 Sterilization (~10/23/19) Sinusitis Pituitary adenoma Normal Papanicolaou smear Neck pain (03/20/14) Primary central diabetes insipidus (06/02/11) Acute diarrhea Swelling of left upper extremity Paresthesia of left upper extremity Surgical History (Updated 06/11/24 @ 17:08 by Danelle Schaefer DO) Delivery by section (~10/23/19) Previous section [place] teeth extracted Family History Brother Gluten intolerance Mother Bipolar 1 disorder Fibromyalgia Arthritis Diverticulitis Brother Bipolar affect, depressed Brother Bipolar affect, depressed Father Myocardial infarction Atrial fibrillation Grandmother Diabetes mellitus Seizures Grandfather Parkinsons Grandmother Stroke Grandfather No problems noted. 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[employer]: [employer] special spring needs: Yes (No Blood Products) sexual history: 1 partner leisure activities: sports, exercise, music, reading and volunteer work seatbelt use: always helmet use: No water heater temp set < 120 deg: Yes working smoke detector in home: Yes fire extinguisher in home: Yes carbon monox detector in home: Yes firearms in home: No do you feel safe at home: Yes Smoking Status: Never smoker second hand exposure: No alcohol intake: current substance use type: does not use during the past year weight has: remained stable well-balanced diet: daily or most days daily servings fruits/ve-4 caffeine: Yes eating out: 1-3 times/week Type(s) of exercise: walking and regular exercise frequency: 3-4 times per week duration: 15-30 minutes/day Smoking Status: Never smoker Exam Narrative Exam Narrative: GENERAL: in no distress, not toxic not dyspneic HEAD: Normocephalic. EYES: Pupils equal round ENT: Mucous membranes moist. NECK: Trachea midline. CARDIOVASCULAR: Regular rate and rhythm RESPIRATORY: Clear to auscultation. Breath sounds equal bilaterally. No wheezes, rales, or rhonchi. GASTROINTESTINAL: Abdomen soft, non-tender BACK: No flank tenderness. EXTREMITIES: No gross deformities. NEURO: AOx4. Clear speech, fast exam is negative. NOWAK score of 0. Clear speech no facial droop light touch intact bilateral face hands strong equal audio specialist negative pronator drift SKIN: Warm and dry PSYCH: Not anxious, is cooperative Initial Vital Signs Initial Vital Signs: Vital Signs Temperature 98.7 F 02/21/25 09:29 Pulse Rate 110 H 02/21/25 09:29 Respiratory Rate 18 02/21/25 09:29 Blood Pressure 175/99 H 02/21/25 09:29 Pulse Oximetry 100 02/21/25 09:29 Oxygen Delivery Method Room Air 02/21/25 09:29 Scores HEART Score Heart Score history: Slightly Suspicious Heart Score EKG: Normal Heart Score Age: < 45 years old Heart Score risk factors: No known risk factors Heart Score troponin: < or = to normal limit Heart Score Total: 0 Course Orders Ordered: ED Orders 02/21/25 09:42 EKG-12 Lead Stat 02/21/25 09:43 CT head/brain wo con Stat XR chest 1V Stat 02/21/25 10:00 Complete Blood Count AUTO DIFF Stat Comprehensive Metabolic Panel Stat D Dimer Stat Test Serum,Qual Stat Prothrombin Time INR Stat TSH [Thyroid Stimulating Hormone] Stat Troponin I Stat 02/21/25 10:34 Troponin & CK Cardiac Panel Stat 02/21/25 12:30 Trop I [Troponin I] Stat Discontinued Medications Acetaminophen (Acetaminophen 325 Mg Tablet) 650 mg PO NOW ONE Stop: 02/21/25 11:20 Last Admin: 02/21/25 11:23 Dose: 650 mg Documented By: ERNESTO Ondansetron HCl (Ondansetron 4 Mg/2 Ml Inj) 4 mg IV NOW ONE Stop: 02/21/25 11:20 Last Admin: 02/21/25 11:23 Dose: 4 mg Documented By: ERNESTO Vital Signs Vital signs: Vital Signs - 8 hr 02/21/25 09:29 02/21/25 10:20 02/21/25 10:20 Temperature 98.7 F Pulse Rate 110 H 105 H Respiratory Rate 18 15 Blood Pressure 175/99 H 146/88 H Pulse Oximetry 100 98 Oxygen Delivery Method Room Air 02/21/25 10:30 02/21/25 11:00 02/21/25 11:00 Temperature Pulse Rate 101 H 98 H Respiratory Rate 16 Blood Pressure 164/95 H Pulse Oximetry 100 99 Oxygen Delivery Method 02/21/25 11:30 02/21/25 11:30 02/21/25 12:00 Temperature Pulse Rate 99 H Respiratory Rate 18 Blood Pressure 164/82 H 154/84 H Pulse Oximetry 100 Oxygen Delivery Method 02/21/25 12:00 02/21/25 12:30 02/21/25 12:30 Temperature Pulse Rate 98 H 95 H Respiratory Rate 24 21 Blood Pressure 158/78 H Pulse Oximetry 98 99 Oxygen Delivery Method 02/21/25 13:00 02/21/25 13:00 Temperature Pulse Rate 99 H Respiratory Rate 21 Blood Pressure 156/82 H Pulse Oximetry 99 Oxygen Delivery Method MDM - Dizziness Lab Data 02/21/25 10:00 02/21/25 10:00 Labs: Lab Results 02/21/25 02/21/25 02/21/25 Range/Units 10:00 10:34 12:30 WBC 6.9 (4.5-11.0) X10^3/uL RBC 4.79 (4.0-5.2) X10^6/uL Hgb 14.2 (12.0-16.0) g/dL Hct 41.4 (36-46) % MCV 86.6 (80-100) fL MCH 29.6 (26-34) PG MCHC 34.2 (30-36) % RDW 13.1 (11.6-14.8) % Plt Count 259 (150-400) X10^3/uL Neut % (Auto) 69.0 (50-75) % Lymph % (Auto) 22.9 L (25-40) % Cherry % (Auto) 6.3 (3-14) % Eos % (Auto) 0.6 L (2-4) % Baso % (Auto) 1.2 (0-2) % Neut # (Auto) 4800 (1769-0747) /uL Lymph # (Auto) 1600 (7812-3284) /uL Cherry # (Auto) 400 (0-900) /uL Eos # (Auto) 0 (0-450) /uL Baso # (Auto) 100 (0-100) /uL PT 10.2 (9.4-12.5) SECONDS INR 0.9 (0.9-1.3) D-Dimer < 215 (<500) ng/ml Sodium 138 (137-145) mmol/L Potassium 4.5 (3.4-5.1) mmol/L Chloride 109 H (98-107) mmol/L Carbon Dioxide 18 L (22-32) mmol/L BUN 17 (7-17) mg/dL Creatinine 0.69 (0.52-1.04) mg/dL Estimated GFR > 60 (>60) mL/min BUN/Creatinine Ratio 24.6 H (6-22) Glucose 128 H (70-99) mg/dL Calcium 8.7 (8.4-10.2) mg/dL Total Bilirubin 0.4 (0.2-1.3) mg/dL AST 30 (14-36) IU/L ALT 38 H (<35) IU/L Alkaline Phosphatase 58 (38-126) U/L Total Creatine Kinase 34 (30-135) U/L Troponin I < 0.012 < 0.012 < 0.012 (0.01-0.034) ng/mL Total Protein 7.3 (6.3-8.2) g/dL Albumin 4.4 (3.5-5.0) g/dL Globulin 2.9 (1.7-4.1) g/dL Albumin/Globulin Ratio 1.5 (1.0-2.8) TSH 1.09 (0.47-4.68) uIU/mL Serum , Qual Negative (Negative) Imaging Data CT scan - head: Radiologist's Impression: [place] [address] CT Scan Report Signed Patient: Tee Price MR#: [id number] : 1985 Acct:[id number] Age/Sex: 39 / F Date of Service: 02/21/25 Loc: ED Accession Number: [id number] Procedure: CT head/brain wo con Ordering Provider: Zachariah Saldana MD PROCEDURE: CT HEAD/BRAIN WO CON INDICATIONS: dizzy TECHNIQUE: Noncontrast 4.5 mm thick angled axial sections acquired from the foramen magnum to the vertex, with coronal and sagittal reformats. For radiation dose reduction, the following was used: automated exposure control, adjustment of mA and/or kV according to patient size. COMPARISON: None. FINDINGS: Image quality: Diagnostic. CSF spaces: Basal cisterns are patent. No extra-axial fluid collections. Ventricles are normal in size and shape. Brain: No midline shift. No intracranial mass effect or hemorrhage. Rodriguez-white matter interface is normal. Skull and face: Calvarium and visualized facial bones are intact, without suspicious lesions. Sinuses: Visualized sinuses and mastoids are clear. IMPRESSION: No acute intracranial pathology. Dictated by: Sammy Cantu M.D. on 02/21/2025 at 10:34 Approved by: Sammy Cantu M.D. on 02/21/2025 at 10:34 [facility] Narrative Medical decision making narrative: patient brought here by for sudden onset of palpitations dizziness changes in vision but no slurred speech facial droop limb numbness tingling or weakness. Patient had episodes in the past but never saw a provider. No prior history of thyroid disease. No family history arrhythmia. No blood clots in legs or lungs. No history of seizures. No syncope. No chest pain no dyspnea. No prior history of SVT AFib MDM After history and exam, CBC CMP magnesium TSH test EKG troponin D-dimer Differential considered: Includes but not limited to SVT atrial fibrillation atrial flutter anxiety seizure TIA stroke Medical records reviewed: no recent visit for this complaint Lab Test results independently reviewed as above. Pertinent findings: WBC 6.9 hemoglobin 14.2 INR 0.9 D-dimer less than 215 sodium 138 potassium 4.5 bicarb 18 BUN 17 creatinine 0.69 GFR greater than 60 troponin less than 0.012 x2 negative Independently reviewed EKG Normal sinus rhythm normal EKG rate 94 Imaging studies independently reviewed: Chest x-ray no acute finding CT head no acute finding Consultations: 10:15 a.m.. Contacted cardiology, dr bloom, patient can follow up with him in the office. Re-evaluations: 12:15 p.m.. Updated patient and has been results. She is feeling much better. Reviewed with them laboratory studies imaging are reassuring. She says she has been under lot of stress recently and was enquiring about anxiolytics and reviewed with her primary care should be managing and she agrees. I am going to contact Dr. Yuli schaefer, primary care for follow up. Return precautions reviewed. They desire discharge home. reviewed with them palpitations can cause dizziness . Patient does understand to be careful with her caffeine intake. She states she is sensitive to caffeine . Patient has stay self gait to the bathroom and back from her room. No ataxia. No dizziness at time of discharge. No arrhythmia at palpitations on monitor 1:15 p.m.. No call back from primary care. We did page. 1 hour ago. patient asymptomatic at this time. Return precautions reviewed. Work note provided. They desire discharge home. Discussion: appropriate for discharge home. Exam is reassuring. return precautions reviewed with patient. Patient will need outpatient Holter monitor/ Zio patch. Cardiology referral provided and was contacted today. Diagnosis: palpitations Discharge Plan Departure Patient Disposition: Home Clinical Impression: Palpitations Instructions: DI for Arrhythmias, DI for Palpitations Activity Restrictions/Additional Instructions: Your exam and laboratory studies and imaging studies are reassuring. You will need to see your family doctor to set up for Holter monitor/ Zio patch for your palpitations which can cause dizziness. Your results are reassuring today. Return if worse if any questions or concerns. No new medications prescriptions are indicated at this time. Prescriptions: No Action desmopressin 10 mcg/spray (0.1 mL) spray with pump See Rx Instructions .ROUTE .COMPLEX Qty: 45 3RF Dose Instruction: ADMINSTER ONE spray nasally up to 5 times daily Rx Instructions: ADMINSTER ONE spray in each nostril up to 5 times daily Referrals: Danelle Schaefer DO [Primary Care Provider, Medical] Stand Alone Forms: Patient Portal/API, Work Release Note
--- NOTE | 2025-02-21 09:43 | DI.RAD.S_ITS ---
PROCEDURE: XR CHEST 1V INDICATIONS: chest pain TECHNIQUE: One view of the chest was acquired. COMPARISON: [facility], CR, XR CHEST 2V, 04/20/2023, 17:12. [facility], CR, XR CHEST 1V, 05/17/2018, 19:33. FINDINGS: Surgical changes and devices: None. Lungs and pleura: An incomplete inspiratory result is noted, causing a crowded appearance to the lung markings. No focal infiltrates are seen. No pneumothorax or significant pleural effusions are seen. Mediastinum: Mediastinal contours appear normal. Heart size is normal. Bones and chest wall: No suspicious bony lesions. Overlying soft tissues appear unremarkable. IMPRESSION: Low lung volumes, without an acute abnormality seen by plain film. Dictated by: Apolinar Mcclain M.D. on 02/21/2025 at 10:02 Approved by: Apolinar Mcclain M.D. on 02/21/2025 at 10:02
--- NOTE | 2025-02-21 09:43 | DI.CT.S_ITS ---
PROCEDURE: CT HEAD/BRAIN WO CON INDICATIONS: dizzy TECHNIQUE: Noncontrast 4.5 mm thick angled axial sections acquired from the foramen magnum to the vertex, with coronal and sagittal reformats. For radiation dose reduction, the following was used: automated exposure control, adjustment of mA and/or kV according to patient size. COMPARISON: None. FINDINGS: Image quality: Diagnostic. CSF spaces: Basal cisterns are patent. No extra-axial fluid collections. Ventricles are normal in size and shape. Brain: No midline shift. No intracranial mass effect or hemorrhage. Rodriguez- white matter interface is normal. Skull and face: Calvarium and visualized facial bones are intact, without suspicious lesions. Sinuses: Visualized sinuses and mastoids are clear. IMPRESSION: No acute intracranial pathology. Dictated by: Sammy Cantu M.D. on 02/21/2025 at 10:34 Approved by: Sammy Cantu M.D. on 02/21/2025 at 10:34
--- NOTE | 2025-02-21 10:16 | EKG_ITS ---
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
[2025-02-21 10:23] LABS: Add Manual Diff / Slide Review NO; Hematocrit 41.4 % (36-46); Hemoglobin 14.2 g/dL (12.0-16.0); Lymphocytes Absolute Auto 1600 /uL (1100-4500); Mean Corpuscular HGB Conc 34.2 % (30-36); Mean Corpuscular Hemoglobin 29.6 PG (26-34); Mean Corpuscular Volume 86.6 fL (80-100); Platelet Count 259 X10^3/uL (150-400)
[2025-02-21 10:24] LABS: INR 0.9 (0.9-1.3); Prothrombin Time 10.2 SECONDS (9.4-12.5)
[2025-02-21 10:27] LABS: Pregnancy Test Serum,Qual Negative (Negative)
[2025-02-21 10:28] LABS: Alanine Aminotransferase 38 IU/L (<35); Albumin 4.4 g/dL (3.5-5.0); Albumin Globulin Ratio 1.5 (1.0-2.8); Alkaline Phosphatase 58 U/L (38-126); Blood Urea Nitrogen 17 mg/dL (7-17); Calcium 8.7 mg/dL (8.4-10.2); Carbon Dioxide 18 mmol/L (22-32); Chloride 109 mmol/L (98-107); Estimated Glomerular Filt Rate > 60 mL/min (>60); Globulin 2.9 g/dL (1.7-4.1); Glucose 128 mg/dL (70-99); HEMOLYSIS 40 (0-50); Potassium 4.5 mmol/L (3.4-5.1); Sodium 138 mmol/L (137-145); Total Protein 7.3 g/dL (6.3-8.2)
[2025-02-21 10:40] LABS: Troponin I < 0.012 ng/mL (0.01-0.034)
[2025-02-21] MEDS: ACETAMINOPHEN 325 MG TABLET 650 MG PO (11:23)
[2025-02-21] MEDS: ONDANSETRON 4 MG/2 ML INJ IV (11:23)
[2025-02-21 11:46] LABS: Creatine Kinase 34 U/L (30-135)
[2025-02-21 11:50] LABS: Thyroid Stimulating Hormone 1.09 uIU/mL (0.47-4.68)
[2025-02-21 11:59] LABS: Troponin I < 0.012 ng/mL (0.01-0.034)
[2025-02-21 13:56] LABS: Troponin I < 0.012 ng/mL (0.01-0.034)
== END 2025-02-21 13:33 | disposition home or self-care (01) ==
PROVIDERS: Emergency Provider Emergency Medicine; PCP Family Medicine
DX: R00.2 Palpitations (principal); R42 Dizziness and giddiness
CPT/HCPCS: 70450; 71045; 80053; 82550; 84443; 84484; 84703; 85025; 85379; 85610; 93005; 96374; 99284; J2405

== ENCOUNTER → 2025-03-03 07:59 | Outpatient (CLI) | payer BC, SELFPAY | PROVIDERS: PCP Family Medicine; Referring Provider Family Medicine; Visit Provider Family Medicine | DX: R00.2 Palpitations (principal) | CPT/HCPCS: 93242 ==

== ENCOUNTER → 2025-04-04 11:42 | Outpatient (CLI) | payer BC, SELFPAY ==
--- NOTE | 2025-04-04 11:43 | DI.MG.S_ITS ---
MM screening mammo BI: 04/04/2025. BI-RADS: 1 CLINICAL: 39-year old female for bilateral screening mammogram. Tyrer-Cuzick lifetime risk of 10.3%. No personal or first-degree family history of breast cancer. Current reported family history of breast cancer: maternal aunt. PRIOR EXAMS: None. This is a baseline mammogram. MAMMOGRAPHY TECHNIQUE: 2D and 3D (tomosynthesis) digital mammographic views obtained, with additional images as needed for full coverage. Current study was also evaluated with a Computer Aided Detection (CAD) system. DENSITY B. There are scattered areas of fibroglandular density. MAMMOGRAPHY FINDINGS Bilateral: No suspicious mass, asymmetry, microcalcification, or other abnormality seen. IMPRESSION: * No evidence of malignancy. RECOMMENDATIONS Bilateral * Annual screening mammography. OVERALL ASSESSMENT CATEGORY BI-RADS-1: Negative. [employer] recommends annual screening mammography beginning at age 40 for women with average risk of breast cancer. ELECTRONICALLY SIGNED: Brea Mendez M.D. on 04/04/2025 at 04:39:14 PM PT Interpreting Station ID: [id number]
== END ==
LOC: MAMMO 11:43
PROVIDERS: PCP Family Medicine; Referring Provider Family Medicine; Visit Provider Family Medicine
DX: Z12.31 Encounter for screening mammogram for malignant neoplasm of breast (principal); Z80.3 Family history of malignant neoplasm of breast
CPT/HCPCS: 77063; 77067